=== PATIENT | male | born 1955 | race Hispanic/Latino ===

== ENCOUNTER 2019-02-17 11:38 | Inpatient (IN) | payer OTHER ==
[~2019-02-17] VITALS: Ht 175.3 cm; Wt 95.4 kg
[2019-02-17] MEDS: FUROSEMIDE INJ 10 MG/ML 2 ML VIAL IV ONE ×2 (01:00→18:30)
[~2019-02-17 11:38] MED LIST: ALLOPURINOL100 MG PO; ASPIR-LOW81 MG PO; Hydralazine Hcl PO; LISINOPRIL10 MG PO; METOPROLOL SUCC25 MG PO; PLAVIX75 MG PO; ZOCOR20 MG PO
--- OUTSIDE RECORDS SUMMARY | 2019-02-17 11:40 | XMS REPORT | Summary of Care ---
Author Author [facility] Organization [facility] Address Unknown Phone Unavailable Encounter [facility] Derrickr_sherin(FIN) [id number] Date(s): 01/12/17 - 01/12/17 [facility] [address] [place] [address] [phone] Discharge Disposition: Home or Self Care Attending Physician: Christopher Ruiz MD Vital Signs No data available for this section Problem List Condition Effective Dates Status Health Status Informant Chest Resolved pain(Confirmed)1 HB - Heart Resolved block(Confirmed) Heart Resolved attack(Confirmed) HTN - Resolved Hypertension(Confirm ed) SOB - Shortness of Active breath(Confirmed) 1comes and goes Allergies, Adverse Reactions, Alerts Substance Reaction Severity Status NKDA Active Medications No data available for this section Results No data available for this section Immunizations No data available for this section Procedures Procedure Date Related Diagnosis Body Site Operation on heart Social History Social History Type Response Substance Abuse Use: None. IV drug use: No. Exercise Exercise frequency: 3-4 times/week. Self assessment: Good condition. Alcohol Past Smoking Status Never smoker; Exposure to Tobacco Smoke None; Cigarette Smoking Last 365 Days No; Reg Smoking Cessation Counseling No Assessment and Plan No data available for this section
--- OUTSIDE RECORDS SUMMARY | 2019-02-17 11:40 | XMS REPORT | Summary of Care ---
Author Organization Unknown Address Unknown Phone Unavailable Encounter [facility] Derrickr_sherin(ARSEN) [id number] Date(s): 12/29/13 - 12/31/13 [facility] [address] Discharge Disposition: Home Physician Attending: Yassine Alvarado MD Physician Admitting: Yassine Alvarado MD Physician_Referring: José Farfan MD Reason for Visit ICD 574.20 / CPT 63950 Vital Signs 1 2 3 Most recent to oldest [Reference Range]: 175.26 cm (12/24/13 12:07 PM) Height 99.3 DegF *HI* (12/31/13 12:15 PM) 99.3 DegF *HI* (12/31/13 8:00 AM) 99.0 DegF (12/31/13 4:00 AM) Temperature Oral [96.4-99.1 DegF] 156 mmHg *HI* (12/31/13 12:15 PM) 182 mmHg *HI* (12/31/13 8:00 AM) 145 mmHg *HI* (12/31/13 4:00 AM) Systolic Blood Pressure [90-140 mmHg] 83 mmHg (12/31/13 12:15 PM) 95 mmHg *HI* (12/31/13 8:00 AM) 78 mmHg (12/31/13 4:00 AM) Diastolic Blood Pressure [60-90 mmHg] 16 BRMIN (12/31/13 4:00 AM) 16 BRMIN (12/31/13 12:00 AM) 16 BRMIN (12/30/13 8:00 PM) Respiratory Rate [14-20 BRMIN] 76 bpm (12/31/13 12:15 PM) 84 bpm (12/31/13 8:00 AM) 72 bpm (12/31/13 4:00 AM) Peripheral Pulse Rate [60-100 bpm] 95 kg (12/24/13 12:07 PM) Weight 30.93 m2 (12/24/13 12:07 PM) Body Mass Index Problem List Condition Effective Dates Status Health Status Informant Chest Resolved pain(Confirmed)1 HB - Heart Resolved block(Confirmed) Heart Resolved attack(Confirmed) HTN - Resolved Hypertension(Confirm ed) SOB - Shortness of Active breath(Confirmed) 1comes and goes Allergies, Adverse Reactions, Alerts Substance Reaction Severity Status NKDA Active Medications allopurinol 100 mg, 1 tab, Route: PO, Drug form: TAB, BID, Dosing Weight 95, kg, Start date: 12/31/13 17:00:00, Duration: 30 day, Stop date: 01/30/14 9:00:00 Notes: (Same as: Zyloprim) Start Date: 12/31/13 Stop Date: 12/31/13 Status: Canceled allopurinol 100 mg oral tablet 100 mg=1 tab, PO, BID, # 60 tab, 0 Refill(s) Start Date: 12/24/13 Status: Ordered Ancef 2 gm, 100 mL, Route: IVPB, Drug form: INJ, ONCE, Dosing Weight 95, kg, Start yassine e: 12/29/13 9:59:00, Duration: 1 doses or times, Stop date: 12/29/13 9:59:00 Notes: Same as: Ancef Start Date: 12/29/13 Stop Date: 12/29/13 Status: Completed aspirin 81 mg tablet, enteric coated 81 mg, 1 tab, Route: PO, Drug form: ECTAB, Daily, Dosing Weight 95, kg, Start da te: 12/31/13 12:00:00, Duration: 30 day, Stop date: 01/30/14 9:00:00 Notes: Do not crush or chew.(Same As: Ecotrin) Start Date: 12/31/13 Stop Date: 12/31/13 Status: Discontinued aspirin 81 mg tablet, enteric coated 81 mg=1 tab, PO, Daily, # 0 tab, 0 Refill(s) Start Date: 12/24/13 Status: Ordered cloNIDine 0.1 mg oral tablet 0.1 mg, 1 tab, Route: PO, Drug form: TAB, Q4H, Dosing Weight 95, kg, PRN Hyperte nsion, Start date: 12/31/13 11:17:00, Duration: 30 day, Stop date: 01/30/14 11:1 6:00 Notes: (Same As: Catapres) Start Date: 12/31/13 Stop Date: 12/31/13 Status: Discontinued enalapril 0.625 mg, 0.5 mL, Route: IVP, Drug form: INJ, Q6H, Dosing Weight 95, kg, PRN Hyp ertension, Start date: 12/29/13 16:23:00, Duration: 30 day, Stop date: 01/28/14 16:22:00 Notes: (Same as: Vasotec-IV) Start Date: 12/29/13 Stop Date: 12/31/13 Status: Discontinued fentaNYL 25 microgram, 0.5 mL, Route: IVP, Drug form: INJ, Q5Min, Dosing Weight 95, kg, P RN Pain Score 4-6, Start date: 12/29/13 14:06:00, Duration: 4 doses or times, St op date: Limited # of times Notes: (Same as: Sublimaze) Preservative free. Start Date: 12/29/13 Stop Date: 12/29/13 Status: Discontinued flumazenil 0.2 mg, 2 mL, Route: IVP, Drug form: INJ, PRN, Dosing Weight 95, kg, PRN Benzodi azepine Reversal, Initial dose, Start date: 12/29/13 14:06:00, Duration: 30 day, Stop date: 01/28/14 14:05:00 Notes: (Same as: Romazicon) Start Date: 12/29/13 Stop Date: 12/29/13 Status: Discontinued hydromorphone 0.5 mg, 0.5 mL, Route: IVP, Drug form: INJ, Q5Min, Dosing Weight 95, kg, PRN Sharri n Score 7-10, Start date: 12/29/13 14:06:00, Duration: 4 doses or times, Stop da te: Limited # of times Start Date: 12/29/13 Stop Date: 12/29/13 Status: Discontinued Lactated Ringers Injection IV 1000 mL 1,000 mL, Rate: 25 ml/hr, Infuse over: 40 hr, Route: IV, Dosing Weight 95 kg, To opal Volume: 1,000, Start date: 12/29/13 9:57:00, Duration: 30 day, Stop date: 9:56:00 Start Date: 12/29/13 Stop Date: 12/29/13 Status: Discontinued lisinopril 10 mg, 1 tab, Route: PO, Drug form: TAB, Daily, Dosing Weight 95, kg, Start date : 01/01/14 9:00:00, Duration: 30 day, Stop date: 01/30/14 9:00:00 Notes: (Same as: Prinivil, Zestril) Start Date: 01/01/14 Stop Date: 12/31/13 Status: Canceled lisinopril 10 mg oral tablet 10 mg=1 tab, PO, Daily, # 30 tab, 0 Refill(s) Start Date: 12/24/13 Status: Ordered magnesium sulfate 2 gm, 50 mL, Route: IV, Drug form: INJ, ONCE, Dosing Weight 95, kg, Start date: 12/30/13 9:14:00, Stop date: 12/30/13 9:14:00 Start Date: 12/30/13 Stop Date: 12/30/13 Status: Completed meperidine 12.5 mg, 0.25 mL, Route: IVP, Drug form: INJ, Q30Min, Dosing Weight 95, kg, PRN Other -See Comment, For shivering, Start date: 12/29/13 14:06:00, Duration: 2 do ses or times, Stop date: Limited # of times Notes: (Same As: Demerol) Start Date: 12/29/13 Stop Date: 12/29/13 Status: Discontinued metoprolol 25 mg oral tablet, extended release 25 mg, PO, Daily, # 30 tab, 0 Refill(s) Start Date: 12/24/13 Stop Date: 01/23/14 Status: Ordered metoprolol 5 mg/5 ml INJ 2.5 mg, 2.5 mL, Route: IVP, Drug form: INJ, BID, Dosing Weight 95, kg, Start yassine e: 12/29/13 17:00:00, Duration: 30 day, Stop date: 01/28/14 9:00:00 Notes: (Same as: Lopressor)Push over 2 minutes Start Date: 12/29/13 Stop Date: 12/30/13 Status: Discontinued metoprolol 5 mg/5 ml INJ 5 mg, 5 mL, Route: IVP, Drug form: INJ, Q8H, Dosing Weight 95, kg, Start date: 0 12/30/13 16:00:00, Duration: 30 day, Stop date: 01/29/14 8:00:00 Notes: (Same as: Lopressor)Push over 2 minutes Start Date: 12/30/13 Stop Date: 12/31/13 Status: Discontinued morphine Sulfate 2 mg, 1 mL, Route: IV, Drug form: INJ, Q3H, Dosing Weight 95, kg, PRN Pain Score 6-10, Start date: 12/30/13 8:12:00, Duration: 30 day, Stop date: 01/29/14 8:11: 00 Notes: (Same as:MORPhine Sulfate) Start Date: 12/30/13 Stop Date: 12/31/13 Status: Discontinued naloxone 0.04 mg, 0.1 mL, Route: IVP, Drug form: INJ, Q2MIN, Dosing Weight 95, kg, PRN Na rcotic Reversal, Start date: 12/29/13 14:06:00, Duration: 8 doses or times, Stop date: Limited # of times Notes: Same as Narcan Start Date: 12/29/13 Stop Date: 12/29/13 Status: Discontinued Neutra-Phos 1 pkt, Route: PO, Drug Form: PDR/REC, Dosing Weight 95, kg, ONCE, Start date: 11:00:00, Stop date: 12/31/13 11:00:00 Notes: (Same as: Neutra-Phos) Each 1.25 gm pkt has 250mg phosphorous. Mix w/2.5 oz water and stir. Start Date: 12/31/13 Stop Date: 12/31/13 Status: Completed nitroglycerin 2% ointment 0.5 inch, Route: TOP, Drug Form: OINT, Dosing Weight 95, kg, Q8H, Start date: 0:00:00, Duration: 30 day, Stop date: 01/28/14 16:00:00 Notes: 1 gram is approximately 1 inch of nitroglycerin ointment (20 mg NTG pe r gram) (Same as:Nitro-Bid) Start Date: 12/30/13 Stop Date: 12/31/13 Status: Discontinued [place] 10/325 oral tablet 1 tab, Route: PO, Drug Form: TAB, Dosing Weight 95, kg, Q4H, PRN Pain Score 4-6, Start date: 12/29/13 14:06:00, Duration: 30 day, Stop date: 01/28/14 14:05:00 Notes: Do not exceed 4gm/day of acetaminophen. (Same as: [place] 325/10) Start Date: 12/29/13 Stop Date: 12/29/13 Status: Discontinued [place] 5/325 oral tablet 1 tab, PO, Q4H, for pain, # 30 tab, 0 Refill(s) Start Date: 12/31/13 Status: Ordered Ofirmev 1,000 mg, 100 mL, Route: IV, Drug form: INJ, ONCE, Dosing Weight 95, kg, PRN Sharri n Score 1-3, for > or=50 kg, Start date: 12/29/13 14:06:00 Notes: Infuse over 15 minutes Do not exceed 4gm/day of acetaminophen Start Date: 12/29/13 Stop Date: 12/29/13 Status: Discontinued ondansetron 4 mg, Route: IVP, ONCE, Dosing Weight 95, kg, PRN Nausea & Vomiting, Start date: 12/29/13 14:06:00 Start Date: 12/29/13 Stop Date: 12/29/13 Status: Completed oxyCODONE 5 mg, 1 tab, Route: PO, Drug form: TAB, Q4H, Dosing Weight 95, kg, PRN Pain Scor e 4-6, Start date: 12/29/13 14:06:00, Duration: 30 day, Stop date: 01/28/14 14:0 5:00 Notes: (Same as: OxyIR) Start Date: 12/29/13 Stop Date: 12/29/13 Status: Discontinued Protonix 40 mg, Route: IVP, Drug form: INJ, Daily, Dosing Weight 95, kg, Patient is NPO, Start date: 12/30/13 9:00:00, Duration: 30 day, Stop date: 01/28/14 9:00:00 Notes: For IV push reconstitute with 10 ml 0.9% sodium chloride and push over 2 minutes. (Same as: Protonix) Start Date: 12/30/13 Stop Date: 12/31/13 Status: Discontinued Protonix 40 mg, 1 tab, Route: PO, Drug form: ECTAB, Daily, Start date: 01/01/14 9:00:00, Duration: 30 day, Stop date: 01/30/14 9:00:00 Notes: Tablet should not be chewed or crushed.(Same as: Protonix) Start Date: 01/01/14 Stop Date: 12/31/13 Status: Canceled Sodium Chloride 0.9% IV 1,000 mL 1,000 mL, Rate: 75 ml/hr, Infuse over: 13.3 hr, Route: IV, Dosing Weight 95 kg, Total Volume: 1,000, Start date: 12/29/13 14:18:00, Duration: 30 day, Stop date: 01/28/14 14:17:00 Start Date: 12/29/13 Stop Date: 12/31/13 Status: Discontinued Toprol-XL 25 mg oral tablet, extended release 25 mg, 1 tab, Route: PO, Drug form: ERTAB, Daily, Start date: 01/01/14 9:00:00, Duration: 30 day, Stop date: 01/30/14 9:00:00 Notes: (Same as: Toprol XL) Do Not Crush Start Date: 01/01/14 Stop Date: 12/31/13 Status: Canceled Results ELECTROLYTES 1 2 3 Most recent to oldest [Reference Range]: 139 mEq/L (12/31/13 4:56 AM) 137 mEq/L (12/30/13 6:12 AM) 139 mEq/L (12/24/13 12:15 PM) Sodium Lvl [135-145 mEq/L] 4.0 mEq/L (12/31/13 4:56 AM) 3.7 mEq/L (12/30/13 6:12 AM) 3.8 mEq/L (12/24/13 12:15 PM) Potassium Lvl [3.5-5.1 mEq/L] 102 mEq/L (12/31/13 4:56 AM) 102 mEq/L (12/30/13 6:12 AM) 101 mEq/L (12/24/13 12:15 PM) Chloride Lvl [95-109 mEq/L] 28 mEq/L (12/31/13 4:56 AM) 27 mEq/L (12/30/13 6:12 AM) 33 mEq/L *HI* (12/24/13 12:15 PM) CO2 [24-32 mEq/L] 13.0 mEq/L (12/31/13 4:56 AM) 11.7 mEq/L (12/30/13 6:12 AM) 8.8 mEq/L *LOW* (12/24/13 12:15 PM) AGAP [10.0-20.0 mEq/L] CHEM PANEL 1 2 3 Most recent to oldest [Reference Range]: 1.0 mg/dL (12/31/13 4:56 AM) 1.0 mg/dL (12/30/13 6:12 AM) 1.0 mg/dL (12/24/13 12:15 PM) Creatinine Lvl [0.5-1.4 mg/dL] 83 mL/min/1.73m2 1 *NA* (12/31/13 4:56 AM) 83 mL/min/1.73m2 2 *NA* (12/30/13 6:12 AM) 83 mL/min/1.73m2 3 *NA* (12/24/13 12:15 PM) eGFR 15 mg/dL (12/31/13 4:56 AM) 15 mg/dL (12/30/13 6:12 AM) 18 mg/dL (12/24/13 12:15 PM) BUN [7-22 mg/dL] 15 (12/31/13 4:56 AM) 15 (12/30/13 6:12 AM) 18 (12/24/13 12:15 PM) B/C Ratio [6-25] 101 mg/dL 4 *HI* (12/31/13 4:56 AM) 123 mg/dL 5 *HI* (12/30/13 6:12 AM) 118 mg/dL 6 *HI* (12/24/13 12:15 PM) Glucose Lvl [70-99 mg/dL] 6.9 g/dL (12/31/13 4:56 AM) 7.6 g/dL (12/30/13 6:12 AM) 8.2 g/dL (12/24/13 12:15 PM) Total Protein [6.4-8.4 g/dL] 3.4 g/dL *LOW* (12/31/13 4:56 AM) 3.6 g/dL (12/30/13 6:12 AM) 4.2 g/dL (12/24/13 12:15 PM) Albumin Lvl [3.5-5.0 g/dL] 3.5 g/dL (12/31/13 4:56 AM) 4.0 g/dL (12/30/13 6:12 AM) 4.0 g/dL (12/24/13 12:15 PM) Globulin [2.0-4.0 g/dL] 1.0 (12/31/13 4:56 AM) 0.9 (12/30/13 6:12 AM) 1.0 (12/24/13 12:15 PM) A/G Ratio [0.7-1.6] 8.7 mg/dL (12/31/13 4:56 AM) 8.5 mg/dL (12/30/13 6:12 AM) 9.0 mg/dL (12/24/13 12:15 PM) Calcium Lvl [8.5-10.5 mg/dL] 2.4 mg/dL *LOW* (12/31/13 4:56 AM) 2.6 mg/dL (12/30/13 6:12 AM) Phosphorus [2.5-4.5 mg/dL] 2.0 mg/dL (12/31/13 4:56 AM) 1.7 mg/dL *LOW* (12/30/13 6:12 AM) Magnesium Lvl [1.8-2.4 mg/dL] 38 unit/L (12/31/13 4:56 AM) 43 unit/L (12/30/13 6:12 AM) 29 unit/L (12/24/13 12:15 PM) ALT [0-65 unit/L] 49 unit/L *HI* (12/31/13 4:56 AM) 56 unit/L *HI* (12/30/13 6:12 AM) 21 unit/L (12/24/13 12:15 PM) AST [0-37 unit/L] 57 unit/L (12/31/13 4:56 AM) 63 unit/L (12/30/13 6:12 AM) 80 unit/L (12/24/13 12:15 PM) Alk Phos [39-136 unit/L] 1.4 mg/dL *HI* (12/31/13 4:56 AM) 0.8 mg/dL (12/30/13 6:12 AM) 0.5 mg/dL (12/24/13 12:15 PM) Bili Total [0.2-1.3 mg/dL] 75 unit/L (12/24/13 12:15 PM) Amylase Lvl [25-115 unit/L] 1Result Comment: The eGFR is calculated using the CKD-EPI formula. In most young, healthy individuals the eGFR will be >90 mL/min/1.73m2. The eGFR declines with age. An eGFR of 60-89 may be normal in some populations, particularly the elderly, for whom the CKD-EPI formula has not been extensively validated. Use of the eGFR is not recommended in the following populations: Individuals with unstable creatinine concentrations, including patients and those with serious co-morbid conditions. Patients with extremes in muscle mass or diet. The data above are obtained from the National Kidney Disease Education Program ( NKDEP) which additionally recommends that when the eGFR is used in patients with extremes of body mass index for purposes of drug dosing, the eGFR should be mul tiplied by the estimated BMI. 2Result Comment: The eGFR is calculated using the CKD-EPI formula. In most young, healthy individuals the eGFR will be >90 mL/min/1.73m2. The eGFR declines with age. An eGFR of 60-89 may be normal in some populations, particularly the elderly, for whom the CKD-EPI formula has not been extensively validated. Use of the eGFR is not recommended in the following populations: Individuals with unstable creatinine concentrations, including patients and those with serious co-morbid conditions. Patients with extremes in muscle mass or diet. The data above are obtained from the National Kidney Disease Education Program ( NKDEP) which additionally recommends that when the eGFR is used in patients with extremes of body mass index for purposes of drug dosing, the eGFR should be mul tiplied by the estimated BMI. 3Result Comment: The eGFR is calculated using the CKD-EPI formula. In most young, healthy individuals the eGFR will be >90 mL/min/1.73m2. The eGFR declines with age. An eGFR of 60-89 may be normal in some populations, particularly the elderly, for whom the CKD-EPI formula has not been extensively validated. Use of the eGFR is not recommended in the following populations: Individuals with unstable creatinine concentrations, including patients and those with serious co-morbid conditions. Patients with extremes in muscle mass or diet. The data above are obtained from the National Kidney Disease Education Program ( NKDEP) which additionally recommends that when the eGFR is used in patients with extremes of body mass index for purposes of drug dosing, the eGFR should be mul tiplied by the estimated BMI. 4Interpretive Data: Adult reference range values reflect the clinical guidelines of the [employer] [place] [employer]. 5Interpretive Data: Adult reference range values reflect the clinical guidelines of the [employer] [place] [employer]. 6Interpretive Data: Adult reference range values reflect the clinical guidelines of the [employer] [place] [employer]. LIPIDS 1 2 3 Most recent to oldest [Reference Range]: 4.00 (12/30/13 6:12 AM) CHD Risk [4.00-7.30] 144 mg/dL (12/30/13 6:12 AM) Chol [<=199 mg/dL] 103 mg/dL (12/30/13 6:12 AM) Trig [<=149 mg/dL] 36 mg/dL *LOW* (12/30/13 6:12 AM) HDL [>=61 mg/dL] 87 mg/dL (12/30/13 6:12 AM) LDL (Calculated) [<=99 mg/dL] 21 *NA* (12/30/13 6:12 AM) VLDL SPECIAL CHEMISTRY 1 2 3 Most recent to oldest [Reference Range]: 5.5 % (12/30/13 6:12 AM) Hgb A1C [<=5.6 %] THYROID PANEL 1 2 3 Most recent to oldest [Reference Range]: 0.719 uIU/mL (12/30/13 6:12 AM) TSH [0.360-3.740 uIU/mL] URINE AND STOOL 1 2 3 Most recent to oldest [Reference Range]: Clear (12/24/13 12:30 PM) UA Turbidity [Clear] Ltyellow *NA* (12/24/13 12:30 PM) UA Color 8.0 (12/24/13 12:30 PM) UA pH [5.0-8.0] 1.015 (12/24/13 12:30 PM) UA Spec Grav [<=1.030] Negative mg/dL *NA* (12/24/13 12:30 PM) UA Glucose [Negative mg/dL] Negative (12/24/13 12:30 PM) UA Blood [Negative] Negative mg/dL *NA* (12/24/13 12:30 PM) UA Ketones [Negative mg/dL] Negative mg/dL (12/24/13 12:30 PM) UA Protein [Negative mg/dL] 2.0 mg/dL *HI* (12/24/13 12:30 PM) UA Urobilinogen [0.1-1.0 mg/dL] Negative *NA* (12/24/13 12:30 PM) UA Bili [Negative] Negative (12/24/13 12:30 PM) UA Leuk Est [Negative] Negative (12/24/13 12:30 PM) UA Nitrite [Negative] <1 /HPF (12/24/13 12:30 PM) UA WBC [0-5 /HPF] 1 /HPF (12/24/13 12:30 PM) UA RBC [0-2 /HPF] None Seen *NA* (12/24/13 12:30 PM) UA Sq Epi IMMUNOLOGY 1 2 3 Most recent to oldest [Reference Range]: Negative *NA* (12/30/13 6:12 AM) Hep Bs Ag [Negative] Negative *NA* (12/30/13 6:12 AM) Hep C Ab [Negative] HEMATOLOGY 1 2 3 Most recent to oldest [Reference Range]: 9.3 K/CMM (12/31/13 4:56 AM) 10.4 K/CMM (12/30/13 6:12 AM) 7.5 K/CMM (12/24/13 12:15 PM) WBC [3.7-10.4 K/CMM] 4.31 M/CMM *LOW* (12/31/13 4:56 AM) 4.74 M/CMM (12/30/13 6:12 AM) 5.07 M/CMM (12/24/13 12:15 PM) RBC [4.70-6.10 M/CMM] 12.5 g/dL *LOW* (12/31/13 4:56 AM) 13.8 g/dL *LOW* (12/30/13 6:12 AM) 14.8 g/dL (12/24/13 12:15 PM) Hgb [14.0-18.0 g/dL] 36.1 % *LOW* (12/31/13 4:56 AM) 39.7 % *LOW* (12/30/13 6:12 AM) 42.2 % (12/24/13 12:15 PM) Hct [42.0-54.0 %] 83.6 fL (12/31/13 4:56 AM) 83.8 fL (12/30/13 6:12 AM) 83.2 fL (12/24/13 12:15 PM) MCV [80.0-94.0 fL] 29.1 pg (12/31/13 4:56 AM) 29.1 pg (12/30/13 6:12 AM) 29.2 pg (12/24/13 12:15 PM) MCH [27.0-31.0 pg] 34.8 g/dL (12/31/13 4:56 AM) 34.7 g/dL (12/30/13 6:12 AM) 35.1 g/dL (12/24/13 12:15 PM) MCHC [32.0-36.0 g/dL] 13.8 % (12/31/13 4:56 AM) 13.6 % (12/30/13 6:12 AM) 13.8 % (12/24/13 12:15 PM) RDW [11.5-14.5 %] 160 K/CMM (12/31/13 4:56 AM) 174 K/CMM (12/30/13 6:12 AM) 181 K/CMM (12/24/13 12:15 PM) Platelet [133-450 K/CMM] 8.7 fL (12/31/13 4:56 AM) 9.2 fL (12/30/13 6:12 AM) 9.1 fL (12/24/13 12:15 PM) MPV [7.4-10.4 fL] 56.8 % (12/24/13 12:15 PM) Segs [45.0-75.0 %] 29.9 % (12/24/13 12:15 PM) Lymphocytes [20.0-40.0 %] 10.5 % (12/24/13 12:15 PM) Monocytes [2.0-12.0 %] 1.5 % (12/24/13 12:15 PM) Eosinophils [0.0-4.0 %] 1.3 % *HI* (12/24/13 12:15 PM) Basophils [0.0-1.0 %] 4.3 K/CMM (12/24/13 12:15 PM) Segs-Bands # [1.5-8.1 K/CMM] 2.2 K/CMM (12/24/13 12:15 PM) Lymphocytes # [1.0-5.5 K/CMM] 0.8 K/CMM (12/24/13 12:15 PM) Monocytes # [0.0-0.8 K/CMM] 0.1 K/CMM (12/24/13 12:15 PM) Eosinophils # [0.0-0.5 K/CMM] 0.1 K/CMM (12/24/13 12:15 PM) Basophils # [0.0-0.2 K/CMM] Medications Administered During Your Visit No data available for this section Immunizations No data available for this section Procedures Procedure Type Body Site Date of Procedure Related Diagnosis Operation on heart Social History Social History Type Response Substance Abuse Use: None, IV drug use: No Exercise Times per week: 3-4 times/week, Self assessment: Good condition Alcohol Use: Past Smoking Status Never smoker, Exposure to Tobacco Smoke None, Cigarette Smoking Last 365 Days No, Reg Smoking Cessation Counseling No Assessment and Plan Extracted from: Title: Clinical Document Author: Yassine Alvarado MD Date: 12/31/13 IM PROGRESS NOTE (Dr. Yassine Alvarado M.D.) SUBJECTIVE Tolerate P.O. liquid so far No SOB or CP Ambulating Vitals and Temp: VitalsTmp(F)[id number] 12/31 08:[id number]/95-------- 12/31 04:98.448710/7816------ 12/31 00:[id number]/7316------ 12/30 21:22 98--- 12/30 20:[id number]/7816------ 24 Hr Tmax: 99.8F (37.67c) at 12/30 11:28Vital Signs are the last 5 in the past 48 hours. OBJECTIVE: HEENT: NC/AT, PERRL, EOMI, OP: clear NECK: Supple, no JVD CVS: RRR, S1, S2, no murmur LUNGS: Good upper airway entry, CTA ABD: S/ND, mild TTP, +BS EXT: no C/C/E NEURO: awake, talking, moving bilateral extremities Scheduled Meds (3): 12/30/13 metoprolol (metoprolol 5 mg/5 ml INJ) 5 mg IVP Q8H 12/30/13 nitroglycerin (nitroglycerin 2% ointment) 0.5 inch TOP Q8H 01/01/14 pantoprazole (Protonix) 40 mg PO Daily PRN Meds (2): 12/29/13 enalapril 0.625 mg IVP Q6H 12/30/13 morphine Sulfate 2 mg IV Q3H Labs (Last four charted values) WBC 9.3(DEC 31)10.4(DEC 30)7.5(DEC 24) Hgb L 12.5(DEC 31)L 13.8(DEC 30)14.8(DEC 24) Hct L 36.1(DEC 31)L 39.7(DEC 30)42.2(DEC 24) Plt 160(DEC 31)174(DEC 30)181(DEC 24) Na 139(DEC 31)137(DEC 30)139(DEC 24) K 4.0(DEC 31)3.7(DEC 30)3.8(DEC 24) CO2 28(DEC 31)27(DEC 30)H 33(DEC 24) Cl 102(DEC 31)102(DEC 30)101(DEC 24) Cr 1.0(DEC 31)1.0(DEC 30)1.0(DEC 24) BUN 15(DEC 31)15(DEC 30)18(DEC 24) Glucose Random H 101(DEC 31)H 123(DEC 30)H 118(DEC 24) Mg 2.0(DEC 31)L 1.7(DEC 30) Phos L 2.4(DEC 31)2.6(DEC 30) Ca 8.7(DEC 31)8.5(DEC 30)9.0(DEC 24) IMPRESSION & PLAN DIAGNOSIS: 1. Symptomatic cholelithiasis / chronic cholecystitis with an open cholecystectomy. 2. Hypertension. 3. Hyperlipidemia. 4. Coronary artery disease with history of prior myocardial infarction. 5. Hyperglycemia. 6. Elevated CO2 level- resolved 7. Low phos PLAN: Give Phos Advance diet Pain control Possible d/c this PM if tolerating P.O.
--- OUTSIDE RECORDS SUMMARY | 2019-02-17 11:40 | XMS REPORT | Continuity of Care Document ---
Author Author [employer] Address Unknown Phone Unavailable Care Team Providers Care Engine Pilot Name Role Phone [facility] Unavailable Unavailable Problems Problem Status Onset Date Classification Date Reported Comments Source Pain in left foot 05/27/2018 10/08/2018 YUMIKO [place] M79.672 - PAIN IN LEFT FOOT Active 03/21/2018 ZORAND [place] I10 - ESSENTIAL (PRIMARY) HYPERTENSI Active 01/13/2016 YUMIKO [place] ICD 574.20 / CPT 94397 Active 12/23/2013 [facility] UNK Active 12/23/2013 [facility] Chest pain (finding) Resolved Problem 10/08/2018 [facility] Heart block (disorder) Resolved Problem 10/08/2018 YUMIKO [place],[facility] Myocardial infarction (disorder) Resolved Problem 10/08/2018 YUMIKO [place],[facility] Hypertensive disorder, systemic arterial (disorder) Resolved Problem 10/08/2018 YUMIKO Cook,[facility] Dyspnea (finding) Active Problem 10/08/2018 [facility] CHOLELITHIASIS NOS Active [facility] Medications Medication Details Route Status Patient Instructions Ordering Provider Order Date Source 24 HR Metoprolol Tartrate 25 MG Extended Release Tablet [Toprol] 25 mg, 1 tab, Route: PO, Drug form: ERTAB, Daily, Start date: 01/01/14 9:00:00, Duration: 30 day, Stop date: 01/30/14 9:00:00Notes: (Same as: Toprol XL) Do Not Crush No Longer Active 01/01/2014 [facility] Lisinopril 10 mg, 1 tab, Route: PO, Drug form: TAB, Daily, Dosing Weight 95, kg, Start date: 01/01/14 9:00:00, Duration: 30 day, Stop date: 01/30/14 9:00:00Notes: (Same as: Prinivil, Zestril) No Longer Active 01/01/2014 [facility] Protonix 40 mg, 1 tab, Route: PO, Drug form: ECTAB, Daily, Start date: 01/01/14 9:00:00, Duration: 30 day, Stop date: 01/30/14 9:00:00Notes: Tablet should not be chewed or crushed. (Same as: Protonix) No Longer Active 01/01/2014 [facility] Allopurinol 100 mg, 1 tab, Route: PO, Drug form: TAB, BID, Dosing Weight 95, kg, Start date: 12/31/13 17:00:00, Duration: 30 day, Stop date: 01/30/14 9:00:00Notes: (Same as: Zyloprim) Inactive 12/31/2013 [facility] Aspirin 81 MG Enteric Coated Tablet 81 mg, 1 tab, Route: PO, Drug form: ECTAB, Daily, Dosing Weight 95, kg, Start date: 12/31/13 12:00:00, Duration: 30 day, Stop date: 01/30/14 9:00:00Notes: Do not crush or chew. (Same As: Ecotrin) Inactive 12/31/2013 [facility] Clonidine Hydrochloride 0.1 MG Oral Tablet 0.1 mg, 1 tab, Route: PO, Drug form: TAB, Q4H, Dosing Weight 95, kg, PRN Hypertension, Start date: 12/31/13 11:17:00, Duration: 30 day, Stop date: 01/30/14 11:16:00Notes: (Same As: Catapres) Inactive 12/31/2013 [facility] Acetaminophen 325 MG / Hydrocodone Bitartrate 5 MG Oral Tablet [[place] 5/325] 1 tab, PO, Q4H, for pain, # 30 tab, 0 Refill(s) Active 12/31/2013 [facility] Neutra-Phos 1 pkt, Route: PO, Drug Form: PDR/REC, Dosing Weight 95, kg, ONCE, Start date: 12/31/13 11:00:00, Stop date: 12/31/13 11:00:00Notes: (Same as: Neutra-Phos) Each 1.25 gm pkt has 250mg phosphorous. Mix w/2.5oz water and stir. Inactive 12/31/2013 [facility] Metoprolol 5 mg, 5 mL, Route: IVP, Drug form: INJ, Q8H, Dosing Weight 95, kg, Start date: 12/30/13 16:00:00, Duration: 30 day, Stop date: 01/29/14 8:00:00Notes: (Same as: Lopressor) Push over 2 minutes No Longer Active 12/30/2013 [facility] Magnesium Sulfate 2 gm, 50 mL, Route: IV, Drug form: INJ, ONCE, Dosing Weight 95, kg, Start date: 12/30/13 9:14:00, Stop date: 12/30/13 9:14:00 Inactive 12/30/2013 [facility] Protonix 40 mg, Route: IVP, Drug form: INJ, Daily, Dosing Weight 95, kg, Patient is NPO, Start date: 12/30/13 9:00:00, Duration: 30 day, Stop date: 01/28/14 9:00:00Notes: For IV push reconstitute with 10 ml 0.9% sodium chloride and push over 2 minutes. (Same as: Protonix) No Longer Active 12/30/2013 [facility] Morphine 2 mg, 1 mL, Route: IV, Drug form: INJ, Q3H, Dosing Weight 95, kg, PRN Pain Score 6-10, Start date: 12/30/13 8:12:00, Duration: 30 day, Stop date: 01/29/14 8:11:00Notes: (Same as:MORPhine Sulfate) No Longer Active 12/30/2013 [facility] Nitroglycerin 0.02 MG/MG Topical Ointment 0.5 inch, Route: TOP, Drug Form: OINT, Dosing Weight 95, kg, Q8H, Start date: 12/30/13 0:00:00, Duration: 30 day, Stop date: 01/28/14 16:00:00Notes: 1 gram is approximately 1 inch of nitroglycerin ointment (20 mg NTG per gram) (Same as:Nitro-Bid) No Longer Active 12/30/2013 [facility] Metoprolol 2.5 mg, 2.5 mL, Route: IVP, Drug form: INJ, BID, Dosing Weight 95, kg, Start date: 12/29/13 17:00:00, Duration: 30 day, Stop date: 01/28/14 9:00:00Notes: (Same as: Lopressor) Push over 2 minutes No Longer Active 12/29/2013 [facility] Enalapril 0.625 mg, 0.5 mL, Route: IVP, Drug form: INJ, Q6H, Dosing Weight 95, kg, PRN Hypertension, Start date: 12/29/13 16:23:00, Duration: 30 day, Stop date: 01/28/14 16:22:00Notes: (Same as: Vasotec-IV) No Longer Active 12/29/2013 [facility] Sodium Chloride 0.154 MEQ/ML Injectable Solution 1,000 mL, Rate: 75 ml/hr, Infuse over: 13.3 hr, Route: IV, Dosing Weight 95 kg, Total Volume: 1,000, Start date: 12/29/13 14:18:00, Duration: 30 day, Stop date: 01/28/14 14:17:00 No Longer Active 12/29/2013 [facility] Ofirmev 1,000 mg, 100 mL, Route: IV, Drug form: INJ, ONCE, Dosing Weight 95, kg, PRN Pain Score 1-3, for > or=50 kg, Start date: 12/29/13 14:06:00Notes: Infuse over 15 minutes Do not exceed 4gm/day of acetaminophen Inactive 12/29/2013 [facility] Acetaminophen 325 MG / Hydrocodone Bitartrate 10 MG Oral Tablet [[place] 10/325] 1 tab, Route: PO, Drug Form: TAB, Dosing Weight 95, kg, Q4H, PRN Pain Score 4-6, Start date: 12/29/13 14:06:00, Duration: 30 day, Stop date: 01/28/14 14:05:00Notes: Do not exceed 4gm/day of acetaminophen. (Same as: [place] 325/10) Inactive 12/29/2013 [facility] Ondansetron 4 mg, Route: IVP, ONCE, Dosing Weight 95, kg, PRN Nausea & Vomiting, Start date: 12/29/13 14:06:00 Inactive 12/29/2013 [facility] Naloxone 0.04 mg, 0.1 mL, Route: IVP, Drug form: INJ, Q2MIN, Dosing Weight 95, kg, PRN Narcotic Reversal, Start date: 12/29/13 14:06:00, Duration: 8 doses or times, Stop date: Limited # of timesNotes: Same as Narcan Inactive 12/29/2013 [facility] Meperidine 12.5 mg, 0.25 mL, Route: IVP, Drug form: INJ, Q30Min, Dosing Weight 95, kg, PRN Other -See Comment, For shivering, Start date: 12/29/13 14:06:00, Duration: 2 doses or times, Stop date: Limited # of t imesNotes: (Same As: Demerol) Inactive 12/29/2013 [facility] Flumazenil 0.2 mg, 2 mL, Route: IVP, Drug form: INJ, PRN, Dosing Weight 95, kg, PRN Benzodiazepine Reversal, Initial dose, Start date: 12/29/13 14:06:00, Duration: 30 day, Stop date: 01/28/14 14:05:00Notes: (Same as: Romazicon) Inactive 12/29/2013 [facility] Hydromorphone 0.5 mg, 0.5 mL, Route: IVP, Drug form: INJ, Q5Min, Dosing Weight 95, kg, PRN Pain Score 7-10, Start date: 12/29/13 14:06:00, Duration: 4 doses or times, Stop date: Limited # of times Inactive 12/29/2013 [facility] Fentanyl 25 microgram, 0.5 mL, Route: IVP, Drug form: INJ, Q5Min, Dosing Weight 95, kg, PRN Pain Score 4-6, Start date: 12/29/13 14:06:00, Duration: 4 doses or times, Stop date: Limited # of timesNotes: (Same as: Sublimaze) Preservative free. Inactive 12/29/2013 [facility] Oxycodone 5 mg, 1 tab, Route: PO, Drug form: TAB, Q4H, Dosing Weight 95, kg, PRN Pain Score 4-6, Start date: 12/29/13 14:06:00, Duration: 30 day, Stop date: 01/28/14 14:05:00Notes: (Same as: OxyIR) Inactive 12/29/2013 [facility] Ancef 2 gm, 100 mL, Route: IVPB, Drug form: INJ, ONCE, Dosing Weight 95, kg, Start date: 12/29/13 9:59:00, Duration: 1 doses or times, Stop date: 12/29/13 9:59:00Notes: Same as: Ancef Inactive 12/29/2013 [facility] Calcium Chloride 0.0014 MEQ/ML / Potassium Chloride 0.004 MEQ/ML / Sodium Chloride 0.103 MEQ/ML / Sodium Lactate 0.028 MEQ/ML Injectable Solution 1,000 mL, Rate: 25 ml/hr, Infuse over: 40 hr, Route: IV, Dosing Weight 95 kg, Total Volume: 1,000, Start date: 12/29/13 9:57:00, Duration: 30 day, Stop date: 01/28/14 9:56:00 Inactive 12/29/2013 [facility] allopurinol 100 mg oral tablet 100 mg=1 tab, PO, BID, # 60 tab, 0 Refill(s) Active 12/24/2013 [facility] lisinopril 10 mg oral tablet 10 mg=1 tab, PO, Daily, # 30 tab, 0 Refill(s) Active 12/24/2013 [facility] metoprolol 25 mg oral tablet, extended release 25 mg, PO, Daily, # 30 tab, 0 Refill(s) Active 12/24/2013 [facility] Aspirin 81 MG Enteric Coated Tablet 81 mg=1 tab, PO, Daily, # 0 tab, 0 Refill(s) Active 12/24/2013 [facility] Allergies, Adverse Reactions, Alerts No Known Medication Allergies Immunizations No Data Provided for This Section Results Order Name Results Value Reference Range Date Interpretation Comments Source CHEM PANEL eGFR 83 12/31/2013 <sup>1</sup>Result Comment: The eGFR is calculated using the CKD-EPI formula. In most young, healthy individuals the eGFR will be >90 mL/min/1.73m2. The eGFR declines with age. An eGFR of 60-89 may be normal in some populations, particularly the elderly, for whom the CKD-EPI formula has not been extensively validated. Use of the eGFR is not recommended in the following populations:& lt;br/>
Individuals with unstable creatinine concentrations, including patients and those with serious co-morbid conditions.

Patients with extremes in muscle mass or diet.

The data above are obtained from the National Kidney Disease Education Program (NKDEP) which additionally recommends that when the eGFR is used in patients with extremes of body mass index for purposes of drug dosing, the eGFR should be multiplied by the estimated BMI. [facility] CHEM PANEL Bili Total 1.4 0.2 - 1.3 12/31/2013 [facility] CHEM PANEL Alk Phos 57 39 - 136 12/31/2013 [facility] CHEM PANEL Albumin Lvl 3.4 3.5 - 5.0 12/31/2013 [facility] CHEM PANEL Globulin 3.5 2.0 - 4.0 12/31/2013 [facility] CHEM PANEL Total Protein 6.9 6.4 - 8.4 12/31/2013 [facility] CHEM PANEL AST 49 0 - 37 12/31/2013 [facility] CHEM PANEL A/G Ratio 1.0 0.7 - 1.6 12/31/2013 [facility] CHEM PANEL ALT 38 0 - 65 12/31/2013 [facility] CHEM PANEL BUN 15 7 - 22 12/31/2013 [facility] CHEM PANEL Creatinine Lvl 1.0 0.5 - 1.4 12/31/2013 [facility] CHEM PANEL Glucose Lvl 101 70 - 99 12/31/2013 <sup>4</sup>Interpretive Data: Adult reference range values reflect the clinical guidelines
of the [place] [employer]. [facility] CHEM PANEL B/C Ratio 15 6 - 25 12/31/2013 [facility] CHEM PANEL Calcium Lvl 8.7 8.5 - 10.5 12/31/2013 [facility] CHEM PANEL AGAP 13.0 10.0 - 20.0 12/31/2013 [facility] CHEM PANEL Sodium Lvl 139 135 - 145 12/31/2013 [facility] CHEM PANEL Chloride Lvl 102 95 - 109 12/31/2013 [facility] CHEM PANEL Potassium Lvl 4.0 3.5 - 5.1 12/31/2013 [facility] CHEM PANEL CO2 28 24 - 32 12/31/2013 [facility] CHEM PANEL Magnesium Lvl 2.0 1.8 - 2.4 12/31/2013 [facility] CHEM PANEL Phosphorus 2.4 2.5 - 4.5 12/31/2013 [facility] HEMATOLOGY Platelet 160 133 - 450 12/31/2013 [facility] HEMATOLOGY MPV 8.7 7.4 - 10.4 12/31/2013 [facility] HEMATOLOGY RDW 13.8 11.5 - 14.5 12/31/2013 [facility] HEMATOLOGY Hct 36.1 42.0 - 54.0 12/31/2013 [facility] HEMATOLOGY MCV 83.6 80.0 - 94.0 12/31/2013 [facility] MCH 29.1 27.0 - 31.0 12/31/2013 [facility] MCHC 34.8 32.0 - 36.0 12/31/2013 [facility] Hgb 12.5 14.0 - 18.0 12/31/2013 [facility] WBC 9.3 3.7 - 10.4 12/31/2013 [facility] RBC 4.31 4.70 - 6.10 12/31/2013 [facility] CHEM PANEL Magnesium Lvl 1.7 1.8 - 2.4 12/30/2013 [facility] CHEM PANEL eGFR 83 12/30/2013 <sup>2</sup>Result Comment: The eGFR is calculated using the CKD-EPI formula. In most young, healthy individuals the eGFR will be >90 mL/min/1.73m2. The eGFR declines with age. An eGFR of 60-89 may be normal in some populations, particularly the elderly, for whom the CKD-EPI formula has not been extensively validated. Use of the eGFR is not recommended in the following populations:& lt;br/>
Individuals with unstable creatinine concentrations, including patients and those with serious co-morbid conditions.

Patients with extremes in muscle mass or diet.

The data above are obtained from the National Kidney Disease Education Program (NKDEP) which additionally recommends that when the eGFR is used in patients with extremes of body mass index for purposes of drug dosing, the eGFR should be multiplied by the estimated BMI. [facility] CHEM PANEL AST 56 0 - 37 12/30/2013 [facility] CHEM PANEL Alk Phos 63 39 - 136 12/30/2013 [facility] CHEM PANEL Bili Total 0.8 0.2 - 1.3 12/30/2013 [facility] CHEM PANEL Calcium Lvl 8.5 8.5 - 10.5 12/30/2013 [facility] CHEM PANEL Total Protein 7.6 6.4 - 8.4 12/30/2013 [facility] CHEM PANEL Albumin Lvl 3.6 3.5 - 5.0 12/30/2013 [facility] CHEM PANEL AGAP 11.7 10.0 - 20.0 12/30/2013 [facility] CHEM PANEL B/C Ratio 15 6 - 25 12/30/2013 [facility] CHEM PANEL Globulin 4.0 2.0 - 4.0 12/30/2013 [facility] CHEM PANEL A/G Ratio 0.9 0.7 - 1.6 12/30/2013 [facility] CHEM PANEL Potassium Lvl 3.7 3.5 - 5.1 12/30/2013 [facility] CHEM PANEL Sodium Lvl 137 135 - 145 12/30/2013 [facility] CHEM PANEL BUN 15 7 - 22 12/30/2013 [facility] CHEM PANEL Creatinine Lvl 1.0 0.5 - 1.4 12/30/2013 [facility] CHEM PANEL Chloride Lvl 102 95 - 109 12/30/2013 [facility] CHEM PANEL CO2 27 24 - 32 12/30/2013 [facility] CHEM PANEL ALT 43 0 - 65 12/30/2013 [facility] CHEM PANEL Glucose Lvl 123 70 - 99 12/30/2013 <sup>5</sup>Interpretive Data: Adult reference range values reflect the clinical guidelines
of the [place] [employer]. [facility] CHEM PANEL Phosphorus 2.6 2.5 - 4.5 12/30/2013 [facility] HEMATOLOGY MPV 9.2 7.4 - 10.4 12/30/2013 [facility] HEMATOLOGY Platelet 174 133 - 450 12/30/2013 [facility] HEMATOLOGY RDW 13.6 11.5 - 14.5 12/30/2013 [facility] MCH 29.1 27.0 - 31.0 12/30/2013 [facility] HEMATOLOGY MCHC 34.7 32.0 - 36.0 12/30/2013 [facility] HEMATOLOGY Hct 39.7 42.0 - 54.0 12/30/2013 [facility] HEMATOLOGY MCV 83.8 80.0 - 94.0 12/30/2013 [facility] HEMATOLOGY RBC 4.74 4.70 - 6.10 12/30/2013 [facility] WBC 10.4 3.7 - 10.4 12/30/2013 [facility] HEMATOLOGY Hgb 13.8 14.0 - 18.0 12/30/2013 [facility] IMMUNOLOGY Hep C Ab Negative *NA* (12/30/13 6:12 AM) Negative 12/30/2013 [facility] Hep Bs Ag Negative *NA* (12/30/13 6:12 AM) Negative 12/30/2013 [facility] LIPIDS VLDL 21 12/30/2013 [facility] LIPIDS LDL (Calculated) 87 <=99 mg/dL 12/30/2013 [facility] LIPIDS Chol 144 <=199 mg/dL 12/30/2013 [facility] LIPIDS HDL 36 >=61 mg/dL 12/30/2013 [facility] LIPIDS CHD Risk 4.00 4.00 - 7.30 12/30/2013 [facility] LIPIDS Trig 103 <=149 mg/dL 12/30/2013 [facility] SPECIAL CHEMISTRY Hgb A1C 5.5 <=5.6 % 12/30/2013 [facility] THYROID PANEL TSH 0.719 0.360 - 3.740 12/30/2013 [facility] URINE AND STOOL UA Color Ltyellow 12/24/2013 [facility] URINE AND STOOL UA Sq Epi None Seen 12/24/2013 [facility] URINE AND STOOL UA WBC <1 0 - 5 12/24/2013 [facility] URINE AND STOOL UA Leuk Est Negative (12/24/13 12:30 PM) Negative 12/24/2013 [facility] URINE AND STOOL UA Nitrite Negative (12/24/13 12:30 PM) Negative 12/24/2013 [facility] URINE AND STOOL UA Urobilinogen 2.0 0.1 - 1.0 12/24/2013 [facility] URINE AND STOOL UA RBC 1 0 - 2 12/24/2013 [facility] URINE AND STOOL UA pH 8.0 5.0 - 8.0 12/24/2013 [facility] URINE AND STOOL UA Spec Grav 1.015 <=1.030 12/24/2013 [facility] URINE AND STOOL UA Blood Negative (12/24/13 12:30 PM) Negative 12/24/2013 [facility] URINE AND STOOL UA Bili Negative *NA* (12/24/13 12:30 PM) Negative 12/24/2013 [facility] URINE AND STOOL UA Ketones Negative mg/dL Negative mg/dL 12/24/2013 [facility] URINE AND STOOL UA Glucose Negative mg/dL Negative mg/dL 12/24/2013 [facility] URINE AND STOOL UA Protein Negative mg/dL Negative mg/dL 12/24/2013 [facility] URINE AND STOOL UA Turbidity Clear (12/24/13 12:30 PM) Clear 12/24/2013 [facility] CHEM PANEL Amylase Lvl 75 25 - 115 12/24/2013 [facility] CHEM PANEL Globulin 4.0 2.0 - 4.0 12/24/2013 [facility] CHEM PANEL A/G Ratio 1.0 0.7 - 1.6 12/24/2013 [facility] CHEM PANEL AGAP 8.8 10.0 - 20.0 12/24/2013 [facility] CHEM PANEL B/C Ratio 18 6 - 25 12/24/2013 [facility] CHEM PANEL eGFR 83 12/24/2013 <sup>3</sup>Result Comment: The eGFR is calculated using the CKD-EPI formula. In most young, healthy individuals the eGFR will be >90 mL/min/1.73m2. The eGFR declines with age. An eGFR of 60-89 may be normal in some populations, particularly the elderly, for whom the CKD-EPI formula has not been extensively validated. Use of the eGFR is not recommended in the following populations:& lt;br/>
Individuals with unstable creatinine concentrations, including patients and those with serious co-morbid conditions.

Patients with extremes in muscle mass or diet.

The data above are obtained from the National Kidney Disease Education Program (NKDEP) which additionally recommends that when the eGFR is used in patients with extremes of body mass index for purposes of drug dosing, the eGFR should be multiplied by the estimated BMI. [facility] CHEM PANEL CO2 33 24 - 32 12/24/2013 [facility] CHEM PANEL Chloride Lvl 101 95 - 109 12/24/2013 [facility] CHEM PANEL Potassium Lvl 3.8 3.5 - 5.1 12/24/2013 [facility] CHEM PANEL Albumin Lvl 4.2 3.5 - 5.0 12/24/2013 [facility] CHEM PANEL Total Protein 8.2 6.4 - 8.4 12/24/2013 [facility] CHEM PANEL Calcium Lvl 9.0 8.5 - 10.5 12/24/2013 [facility] CHEM PANEL Glucose Lvl 118 70 - 99 12/24/2013 <sup>6</sup>Interpretive Data: Adult reference range values reflect the clinical guidelines
of the [place] [employer]. [facility] CHEM PANEL BUN 18 7 - 22 12/24/2013 [facility] CHEM PANEL Creatinine Lvl 1.0 0.5 - 1.4 12/24/2013 [facility] CHEM PANEL Sodium Lvl 139 135 - 145 12/24/2013 [facility] CHEM PANEL AST 21 0 - 37 12/24/2013 [facility] CHEM PANEL Alk Phos 80 39 - 136 12/24/2013 [facility] CHEM PANEL ALT 29 0 - 65 12/24/2013 [facility] CHEM PANEL Bili Total 0.5 0.2 - 1.3 12/24/2013 [facility] HEMATOLOGY Basophils # 0.1 0.0 - 0.2 12/24/2013 [facility] HEMATOLOGY Monocytes 10.5 2.0 - 12.0 12/24/2013 [facility] HEMATOLOGY Lymphocytes 29.9 20.0 - 40.0 12/24/2013 [facility] HEMATOLOGY Segs 56.8 45.0 - 75.0 12/24/2013 [facility] HEMATOLOGY Eosinophils 1.5 0.0 - 4.0 12/24/2013 [facility] HEMATOLOGY Basophils 1.3 0.0 - 1.0 12/24/2013 [facility] HEMATOLOGY Eosinophils # 0.1 0.0 - 0.5 12/24/2013 [facility] HEMATOLOGY Monocytes # 0.8 0.0 - 0.8 12/24/2013 [facility] Lymphocytes # 2.2 1.0 - 5.5 12/24/2013 [facility] Segs-Bands # 4.3 1.5 - 8.1 12/24/2013 [facility] MPV 9.1 7.4 - 10.4 12/24/2013 [facility] MCHC 35.1 32.0 - 36.0 12/24/2013 [facility] Platelet 181 133 - 450 12/24/2013 [facility] RDW 13.8 11.5 - 14.5 12/24/2013 [facility] MCH 29.2 27.0 - 31.0 12/24/2013 [facility] MCV 83.2 80.0 - 94.0 12/24/2013 [facility] Hct 42.2 42.0 - 54.0 12/24/2013 [facility] Hgb 14.8 14.0 - 18.0 12/24/2013 [facility] RBC 5.07 4.70 - 6.10 12/24/2013 [facility] WBC 7.5 3.7 - 10.4 12/24/2013 [facility] Pathology Reports No Data Provided for This Section Diagnostic Reports Report Value Date Source Foot 3 views bilateral DX Exam: Right and left foot x-rays, 3 views each Reason for Exam: Pain Comparison Exam: Left foot x-ray 04/11/2013 Discussion: Right: No acute bony abnormalities. Joint spaces are preserved. No suspicious osteoblastic or osteolytic lesions. Left: No acute bony abnormalities. Joint spaces are preserved. No suspicious osteoblastic or osteolytic lesions. Impression: 1. Unremarkable x-rays of the right and left feet. 03/21/2018 YUMIKO Cook Shoulder series DX Exam: Right shoulder x-ray, 3 views Reason for Exam: - M25.511 Pain in right shoulder Comparison Exam: None Discussion: No acute bony abnormality seen of the right shoulder. Moderate osteoarthritis seen within the glenohumeral joint. The acromioclavicular joint and visualized portions of the scapula are unremarkable. No suspicious osteoblastic or osteolytic lesions. The visualized portions of the right rib cage and right lung are unremarkable. Impression: 1. Moderate osteoarthritis seen within the glenohumeral joint. 01/12/2017 YUMIKO Cook Chest 2 views DX EXAM: 2 view(s) of the chest. INDICATION: Hypertension. COMPARISON: Chest x-ray: None. FINDINGS: Support apparatus: None. Cardiac silhouette: Unremarkable. Donita: Unremarkable. Lobar consolidation: Negative. Pleural effusion: Negative. Pneumothorax: Negative. Other: Negative. Bones: Sternotomy. Other: Coronary artery bypass graft. IMPRESSION: 1. No acute cardiopulmonary process. 01/13/2016 YUMIKO Cook Abdomen AP view KUB 1 View: FINDINGS: KUB performed per protocol for laparoscopic to open procedure. The initial image partially cuts off the right side of the abdomen and there is question of a faint linear density in close proximity to the surgical naresh and clips in the right upper abdomen. Technologist was asked to repeat the study but on the repeat image concentrated on the left side of the abdomen. Third submitted image concentrates on the right side of the abdomen and reveals mild degree of motion. There are surgical clips in the right upper abdomen. Surgical naresh project immediately below the surgical clips. No other definite metallic radiopaque foreign body is visualized. Note: Findings telephoned to the OR charge nurse, William, 12/29/2013, 1430 hours. SL:13 12/29/2013 [facility] Consultation Notes No Data Provided for This Section Discharge Summaries No Data Provided for This Section History and Physicals No Data Provided for This Section Vital Signs Vital Sign Value Date Comments Source Heart Rate 76 12/31/2013 [facility] Temperature Oral (F) 99.3 F 12/31/2013 [facility] Diastolic (mm Hg) 83 12/31/2013 [facility] Systolic (mm Hg) 156 12/31/2013 [facility] Temperature Oral (F) 99.3 F 12/31/2013 [facility] Diastolic (mm Hg) 95 12/31/2013 [facility] Systolic (mm Hg) 182 12/31/2013 [facility] Heart Rate 84 12/31/2013 [facility] Respitory Rate 16 12/31/2013 [facility] Heart Rate 72 12/31/2013 [facility] Systolic (mm Hg) 145 12/31/2013 [facility] Temperature Oral (F) 99.0 F 12/31/2013 [facility] Diastolic (mm Hg) 78 12/31/2013 [facility] Respitory Rate 16 12/31/2013 [facility] Respitory Rate 16 12/31/2013 [facility] Weight 95 12/24/2013 [facility] BMI Calculated 30.93 12/24/2013 [facility] Height 175.26 cm 12/24/2013 [facility] Encounters Location Location Details Encounter Type Encounter Number Reason For Visit Attending Provider ADM Date DC Date Status Source [facility] Inpatient [id number] José Adolph 12/29/2013 12/31/2013 [facility] [place] [facility] [id number] Christopher Ruiz 01/13/2016 01/14/2016 [facility] [place] [facility] [place] [facility] [id number] Christopher Ruiz 01/12/2017 01/13/2017 [facility] [place] [facility] [place] [facility] [id number] Christopher Ruiz 03/21/2018 03/22/2018 [facility] [place] Procedures Procedure Code Date Perfomer Comments Source Operation on heart [id number] YUMIKO Cook,[facility] Assessment and Plan Assessment and Plan Date Source Extracted from:Title: Clinical Document Author: Mateo Alvarado MD Date: 12/31/13 IM PROGRESS NOTE (Dr. Mateo Alvarado M.D.) SUBJECTIVE Tolerate P.O. liquid so far No SOB or CP Ambulating Vitals and Temp: Vitals Tmp(F) Pulse BP RR SpO2 FIO2 12/31 08:00 99.3 84 182/95 -- --- --- 12/31 04:00 99.0 72 145/78 16 --- --- 12/31 00:00 98.7 75 141/73 16 --- --- 12/30 21:22 ---- --- ----- -- 98 --- 12/30 20:00 98.6 90 139/78 16 --- --- 24 Hr Tmax: 99.8F (37.67c) at 12/30 11:28 Vital Signs are the last 5 in the [...] Q3H Labs (Last four charted values) WBC 9.3 (DEC 31) 10.4 (DEC 30) 7.5 (DEC 24) Hgb L 12.5 (DEC 31) L 13.8 (DEC 30) 14.8 (DEC 24) Hct L 36.1 (DEC 31) L 39.7 (DEC 30) 42.2 (DEC 24) Plt 160 (DEC 31) 174 (DEC 30) 181 (DEC 24) Na 139 (DEC 31) 137 (DEC 30) 139 (DEC 24) K 4.0 (DEC 31) 3.7 (DEC 30) 3.8 (DEC 24) CO2 28 (DEC 31) 27 (DEC 30) H 33 (DEC 24) Cl 102 (DEC 31) 102 (DEC 30) 101 (DEC 24) Cr 1.0 (DEC 31) 1.0 (DEC 30) 1.0 (DEC 24) BUN 15 (DEC 31) 15 (DEC 30) 18 (DEC 24) Glucose Random H 101 (DEC 31) H 123 (DEC 30) H 118 (DEC 24) Mg 2.0 (DEC 31) L 1.7 (DEC 30) Phos L 2.4 (DEC 31) 2.6 (DEC 30) Ca 8.7 (DEC 31) 8.5 (DEC 30) 9.0 (DEC 24) IMPRESSION and PLAN DIAGNOSIS: 1. Symptomatic cholelithiasis / chronic cholecystitis with an open cholecystectomy. 2. Hypertension. 3. Hyperlipidemia. 4. Coronary artery disease with history of prior myocardial infarction. 5. Hyperglycemia. 6. Elevated CO2 level- resolved 7. Low phos PLAN: Give Phos Advance diet Pain control Possible d/c this PM if tolerating P.O. 12/31/2013 [facility] Plan of Care No Data Provided for This Section Social History Social History Date Source Social History TypeResponse Substance Abuse Use: None. IV drug use: No. Exercise Exercise frequency: 3-4 times/week. Self assessment: Good condition. Alcohol Past Smoking Status Never smoker; Exposure to Tobacco Smoke None; Cigarette Smoking Last 365 Days No; Reg Smoking Cessation Counseling No entered on: 12/29/13 12/29/2013 YUMIKO Cook Social History TypeResponse Substance Abuse Use: None, IV drug use: No Exercise Times per week: 3-4 times/week, Self assessment: Good condition Alcohol Use: Past Smoking Status Never smoker, Exposure to Tobacco Smoke None, Cigarette Smoking Last 365 Days No, Reg Smoking Cessation Counseling No 12/29/2013 [facility] Family History No Data Provided for This Section Advance Directives No Data Provided for This Section Functional Status No Data Provided for This Section
--- OUTSIDE RECORDS SUMMARY | 2019-02-17 11:40 | XMS REPORT | Summary of Care ---
Author Author [facility] [place] Organization [facility] [place] Address Unknown Phone Unavailable Encounter [facility] Derrickr_sherin(FIN) [id number] Date(s): 01/13/16 - 01/13/16 [facility] [place] [address] [place] [phone] Discharge Disposition: Home or Self Care Attending [...]
--- OUTSIDE RECORDS SUMMARY | 2019-02-17 11:41 | XMS REPORT | Summary of Care ---
Author Author [facility] - [place] Organization [facility] [place] Address Unknown Phone Unavailable Encounter [facility] Encntr_sherin(FIN) [id number] Date(s): 03/21/18 - 03/21/18 [facility] Outpatient Imaging - [place] [address] [place] [phone] Encounter Diagnosis Pain in left foot (Final) - 05/27/18 Discharge Disposition: Home or Self Care Attending Physician: Christopher Ruiz MD Referring Physician: Christopher Ruiz MD Vital Signs No [...] Procedures Procedure Date Related Diagnosis Body Site Status Operation on heart Completed Social History Social History Type Response Substance Abuse Use: None. IV drug use: No. Exercise Exercise frequency: 3-4 times/week. Self assessment: Good condition. Alcohol Past Smoking Status Never smoker; Exposure to Tobacco Smoke None; Cigarette Smoking Last 365 Days No; Reg Smoking Cessation Counseling No entered on: 12/29/13 Assessment and Plan No data available for this section
[2019-02-17] MEDS ORDERED: ASPIRIN 81 MG CHEW TAB PO ONE (12:00)
[2019-02-17 12:07] LABS: BASOPHILS % 0.6 % (0.0-1.0); BILIRUBIN,URINE NEGATIVE (NEGATIVE); CLARITY,URINE CLEAR (CLEAR); COLOR,URINE YELLOW (YELLOW); EOSINOPHILS # (AUTO) 0.1 (0.0-0.4); EOSINOPHILS % 1.3 % (0.0-6.0); HEMATOCRIT 17.1 % (38.2-49.6); KETONES,URINE NEGATIVE (NEGATIVE); LEUKOCYTE ESTERASE ,URINE NEGATIVE (NEGATIVE); LYMPHOCYTES # (AUTO) 1.7 (1.0-3.2); LYMPHOCYTES % 26.8 % (18.0-39.1); MEAN CORPUSCULAR HEMOGLOBIN 20.8 pg (28-32); MEAN CORPUSCULAR HGB CONC 28.7 g/dL (31-35); MEAN CORPUSCULAR VOLUME 72.5 fL (81-99); MONOCYTES # (AUTO) 0.7 (0.2-0.8); NEUTROPHILS # (AUTO) 3.7 (2.1-6.9); NEUTROPHILS % 59.8 % (38.7-80.0); NITRITE,URINE NEGATIVE (NEGATIVE); PLATELET COUNT 203 x10e3/uL (140-360); PROTEIN,URINE DIPSTICK NEGATIVE (NEGATIVE); RED BLOOD COUNT 2.36 x10e6/uL (4.3-5.7); RED CELL DISTRIBUTION WIDTH 17.9 % (11.7-14.4); URINE UROBILINOGEN 0.2 mg/dL (0.2 - 1)
[2019-02-17 12:13] LABS: INR 1.13; PROTHROMBIN TIME 15.1 seconds (11.9-14.5)
[2019-02-17 12:14] LABS: PARTIAL THROMBOPLASTIN TIME 28.7 seconds (23.8-35.5)
[2019-02-17 12:24] LABS: ALBUMIN 3.6 g/dL (3.5-5.0); ANION GAP 13.9 mmol/L (8-16); CALCIUM 8.5 mg/dL (8.4-10.2); CREATININE, SERUM 1.54 mg/dL (0.72-1.25); HEMOGLOBIN 4.9 g/dL (14.0-18.0); POTASSIUM 3.9 mmol/L (3.5-5.1)
[2019-02-17 12:27] LABS: BACTERIA,URINE FEW /HPF; EPITHELIAL CELLS,URINE FEW /LPF; RBC,URINE 0-5 /HPF (0-5); WBC,URINE (MAN) 0-5 /HPF (0-5)
[2019-02-17] MEDS ORDERED: SODIUM CHLORIDE 0.9% 250ML 250 ML IV ONE (12:30)
[2019-02-17 12:56] LABS: HYPOCHROMASIA MODERATE; LYMPHOCYTES % (MANUAL) 24 % (19-48); MONOCYTES % (MANUAL) 13 % (3.4-9.0); NEUTROPHILS % (MANUAL) 63 % (40-74); PLATELET ESTIMATE ADEQUATE
[2019-02-17 12:57] LABS: RBC MORPHOLOGY COMMENT ABNORMAL
--- NOTE | 2019-02-17 13:15 | Diagnostic Imaging Report ---
Chest, 1 view, 02/17/2019. History: Shortness of breath. Comparison: None available. Findings: The cardiomediastinal silhouette and pulmonary vasculature are within normal limits for a portable exam. There is no focal consolidation or pleural effusion. Median sternotomy wires are present. There are no acute osseous or soft tissue abnormalities. Impression: No acute cardiopulmonary abnormality. Signed by: Juan De La Torre on 02/17/2019 1:11 PM
--- OUTSIDE RECORDS SUMMARY | 2019-02-17 13:36 | XMS REPORT ---
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 Allergies, Adverse Reactions, Alerts This patient has no known allergies or adverse reactions. Medications This patient has no known medications. Results Test Description Test Time Test Comments Text Results Atomic Results Result Comments CHEST SINGLE (PORTABLE) 2019-02-17 13:11:00 [place] [address] Patient Name: DARELL PAZ MR #: [id number] : 1955 Age/Sex: 63/M Req #: [id number] Adm Physician: Ordered by: CHARO KWOK WRAPPER STEMMER HAND Report #: [id number] Location: ER Room/Bed: Procedure: [id number] DX/CHEST SINGLE (PORTABLE) Exam Date: 02/17/19 Exam Time: 1230 REPORT STATUS: Signed Chest, 1 view, 02/17/2019. History: Shortness of breath. Comparison: None available. Findings: The cardiomediastinal silhouette and pulmonary vasculature are within normal limits for a portable exam. There is no focal consolidation or pleural effusion. Median sternotomy wires are present. There are no acute osseous or soft tissue abnormalities. Impression: No acute cardiopulmonary abnormality. Signed by: Liza De La Torre on 02/17/2019 1:11 PM Dictated By: LIZA DE LA TORRE MD [id number] Transcribed By: AZAM on 02/17/19 1311 COPY TO: CHARO KWOK NP
--- OUTSIDE RECORDS SUMMARY | 2019-02-17 13:36 | XMS REPORT | Continuity of Care Document ---
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 Name Role Phone Parents R People Unavailable Unavailable Problems Problem Status Onset Date Classification Date Reported Comments Source Pain in left foot 05/27/2018 10/08/2018 YUMIKO Diasadena M79.672 - PAIN IN LEFT FOOT Active 03/21/2018 ZORAND [facility] I10 - ESSENTIAL (PRIMARY) HYPERTENSI Active 01/13/2016 YUMIKO Serratoa ICD 574.20 / CPT 94283 Active 12/23/2013 [facility] UNK Active 12/23/2013 [facility] Chest pain (finding) Resolved Problem 10/08/2018 [facility] Heart block (disorder) Resolved Problem 10/08/2018 YUMIKO [place],[facility] Myocardial infarction (disorder) Resolved Problem 10/08/2018 YUMIKO Serratoa,[facility] Hypertensive disorder, systemic arterial (disorder) Resolved Problem 10/08/2018 YUMIKO Cook,[facility] Dyspnea (finding) Active Problem 10/08/2018 [facility] CHOLELITHIASIS NOS Active [facility] Medications Medication Details Route Status Patient Instructions Ordering Provider Order Date Source 24 HR Metoprolol Tartrate 25 MG Extended Release Tablet [Toprol] 25 mg, 1 tab, Route: PO, Drug form: ERTAB, Daily, Start date: 01/01/14 9:00:00, Duration: 30 day, Stop date: 01/30/14 9:00:00Notes: (Same as: Toprol XL) Do Not Crush No Longer Active 01/01/2014 [facility] Lisinopril 10 mg, 1 tab, Route: PO, Drug form: TAB, Daily, Dosing Weight 95, kg, Start date: 01/01/14 9:00:00, Duration: 30 day, Stop date: 01/30/14 9:00:00Notes: (Same as: Prinivil, Zestril) No Longer Active 01/01/2014 [facility] Protonix 40 mg, 1 tab, Route: PO, Drug form: ECTAB, Daily, Start date: 01/01/14 9:00:00, Duration: 30 day, Stop date: 01/30/14 9:00:00Notes: Tablet should not be chewed or crushed. (Same as: Protonix) No Longer Active 01/01/2014 [facility] Allopurinol 100 mg, 1 tab, Route: PO, Drug form: TAB, BID, Dosing Weight 95, kg, Start date: 12/31/13 17:00:00, Duration: 30 day, Stop date: 01/30/14 9:00:00Notes: (Same as: Zyloprim) Inactive 12/31/2013 [facility] Aspirin 81 MG Enteric Coated Tablet 81 mg, 1 tab, Route: PO, Drug form: ECTAB, Daily, Dosing Weight 95, kg, Start date: 12/31/13 12:00:00, Duration: 30 day, Stop date: 01/30/14 9:00:00Notes: Do not crush or chew. (Same As: Ecotrin) Inactive 12/31/2013 [facility] Clonidine Hydrochloride 0.1 MG Oral Tablet 0.1 mg, 1 tab, Route: PO, Drug form: TAB, Q4H, Dosing Weight 95, kg, PRN Hypertension, Start date: 12/31/13 11:17:00, Duration: 30 day, Stop date: 01/30/14 11:16:00Notes: (Same As: Catapres) Inactive 12/31/2013 [facility] Acetaminophen 325 MG / Hydrocodone Bitartrate 5 MG Oral Tablet [Eaton 5/325] 1 tab, PO, Q4H, for pain, # 30 tab, 0 Refill(s) Active 12/31/2013 [facility] Neutra-Phos 1 pkt, Route: PO, Drug Form: PDR/REC, Dosing Weight 95, kg, ONCE, Start date: 12/31/13 11:00:00, Stop date: 12/31/13 11:00:00Notes: (Same as: Neutra-Phos) Each 1.25 gm pkt has 250mg phosphorous. Mix w/2.5oz water and stir. Inactive 12/31/2013 [facility] Metoprolol 5 mg, 5 mL, Route: IVP, Drug form: INJ, Q8H, Dosing Weight 95, kg, Start date: 12/30/13 16:00:00, Duration: 30 day, Stop date: 01/29/14 8:00:00Notes: (Same as: Lopressor) Push over 2 minutes No Longer Active 12/30/2013 [facility] Magnesium Sulfate 2 gm, 50 mL, Route: IV, Drug form: INJ, ONCE, Dosing Weight 95, kg, Start date: 12/30/13 9:14:00, Stop date: 12/30/13 9:14:00 Inactive 12/30/2013 [facility] Protonix 40 mg, Route: IVP, Drug form: INJ, Daily, Dosing Weight 95, kg, Patient is NPO, Start date: 12/30/13 9:00:00, Duration: 30 day, Stop date: 01/28/14 9:00:00Notes: For IV push reconstitute with 10 ml 0.9% sodium chloride and push over 2 minutes. (Same as: Protonix) No Longer Active 12/30/2013 [facility] Morphine 2 mg, 1 mL, Route: IV, Drug form: INJ, Q3H, Dosing Weight 95, kg, PRN Pain Score 6-10, Start date: 12/30/13 8:12:00, Duration: 30 day, Stop date: 01/29/14 8:11:00Notes: (Same as:MORPhine Sulfate) No Longer Active 12/30/2013 [facility] Nitroglycerin 0.02 MG/MG Topical Ointment 0.5 inch, Route: TOP, Drug Form: OINT, Dosing Weight 95, kg, Q8H, Start date: 12/30/13 0:00:00, Duration: 30 day, Stop date: 01/28/14 16:00:00Notes: 1 gram is approximately 1 inch of nitroglycerin ointment (20 mg NTG per gram) (Same as:Nitro-Bid) No Longer Active 12/30/2013 [facility] Metoprolol 2.5 mg, 2.5 mL, Route: IVP, Drug form: INJ, BID, Dosing Weight 95, kg, Start date: 12/29/13 17:00:00, Duration: 30 day, Stop date: 01/28/14 9:00:00Notes: (Same as: Lopressor) Push over 2 minutes No Longer Active 12/29/2013 [facility] Enalapril 0.625 mg, 0.5 mL, Route: IVP, Drug form: INJ, Q6H, Dosing Weight 95, kg, PRN Hypertension, Start date: 12/29/13 16:23:00, Duration: 30 day, Stop date: 01/28/14 16:22:00Notes: (Same as: Vasotec-IV) No Longer Active 12/29/2013 [facility] Sodium Chloride 0.154 MEQ/ML Injectable Solution 1,000 mL, Rate: 75 ml/hr, Infuse over: 13.3 hr, Route: IV, Dosing Weight 95 kg, Total Volume: 1,000, Start date: 12/29/13 14:18:00, Duration: 30 day, Stop date: 01/28/14 14:17:00 No Longer Active 12/29/2013 [facility] Ofirmev 1,000 mg, 100 mL, Route: IV, Drug form: INJ, ONCE, Dosing Weight 95, kg, PRN Pain Score 1-3, for > or=50 kg, Start date: 12/29/13 14:06:00Notes: Infuse over 15 minutes Do not exceed 4gm/day of acetaminophen Inactive 12/29/2013 [facility] Acetaminophen 325 MG / Hydrocodone Bitartrate 10 MG Oral Tablet [Eaton 10/325] 1 tab, Route: PO, Drug Form: TAB, Dosing Weight 95, kg, Q4H, PRN Pain Score 4-6, Start date: 12/29/13 14:06:00, Duration: 30 day, Stop date: 01/28/14 14:05:00Notes: Do not exceed 4gm/day of acetaminophen. (Same as: Eaton 325/10) Inactive 12/29/2013 [facility] Ondansetron 4 mg, Route: IVP, ONCE, Dosing Weight 95, kg, PRN Nausea & Vomiting, Start date: 12/29/13 14:06:00 Inactive 12/29/2013 [facility] Naloxone 0.04 mg, 0.1 mL, Route: IVP, Drug form: INJ, Q2MIN, Dosing Weight 95, kg, PRN Narcotic Reversal, Start date: 12/29/13 14:06:00, Duration: 8 doses or times, Stop date: Limited # of timesNotes: Same as Narcan Inactive 12/29/2013 [facility] Meperidine 12.5 mg, 0.25 mL, Route: IVP, Drug form: INJ, Q30Min, Dosing Weight 95, kg, PRN Other -See Comment, For shivering, Start date: 12/29/13 14:06:00, Duration: 2 doses or times, Stop date: Limited # of t imesNotes: (Same As: Demerol) Inactive 12/29/2013 [facility] Flumazenil 0.2 mg, 2 mL, Route: IVP, Drug form: INJ, PRN, Dosing Weight 95, kg, PRN Benzodiazepine Reversal, Initial dose, Start date: 12/29/13 14:06:00, Duration: 30 day, Stop date: 01/28/14 14:05:00Notes: (Same as: Romazicon) Inactive 12/29/2013 [facility] Hydromorphone 0.5 mg, 0.5 mL, Route: IVP, Drug form: INJ, Q5Min, Dosing Weight 95, kg, PRN Pain Score 7-10, Start date: 12/29/13 14:06:00, Duration: 4 doses or times, Stop date: Limited # of times Inactive 12/29/2013 [facility] Fentanyl 25 microgram, 0.5 mL, Route: IVP, Drug form: INJ, Q5Min, Dosing Weight 95, kg, PRN Pain Score 4-6, Start date: 12/29/13 14:06:00, Duration: 4 doses or times, Stop date: Limited # of timesNotes: (Same as: Sublimaze) Preservative free. Inactive 12/29/2013 [facility] Oxycodone 5 mg, 1 tab, Route: PO, Drug form: TAB, Q4H, Dosing Weight 95, kg, PRN Pain Score 4-6, Start date: 12/29/13 14:06:00, Duration: 30 day, Stop date: 01/28/14 14:05:00Notes: (Same as: OxyIR) Inactive 12/29/2013 [facility] Ancef 2 gm, 100 mL, Route: IVPB, Drug form: INJ, ONCE, Dosing Weight 95, kg, Start date: 12/29/13 9:59:00, Duration: 1 doses or times, Stop date: 12/29/13 9:59:00Notes: Same as: Ancef Inactive 12/29/2013 [facility] Calcium Chloride 0.0014 MEQ/ML / Potassium Chloride 0.004 MEQ/ML / Sodium Chloride 0.103 MEQ/ML / Sodium Lactate 0.028 MEQ/ML Injectable Solution 1,000 mL, Rate: 25 ml/hr, Infuse over: 40 hr, Route: IV, Dosing Weight 95 kg, Total Volume: 1,000, Start date: 12/29/13 9:57:00, Duration: 30 day, Stop date: 01/28/14 9:56:00 Inactive 12/29/2013 [facility] allopurinol 100 mg oral tablet 100 mg=1 tab, PO, BID, # 60 tab, 0 Refill(s) Active 12/24/2013 [facility] lisinopril 10 mg oral tablet 10 mg=1 tab, PO, Daily, # 30 tab, 0 Refill(s) Active 12/24/2013 [facility] metoprolol 25 mg oral tablet, extended release 25 mg, PO, Daily, # 30 tab, 0 Refill(s) Active 12/24/2013 [facility] Aspirin 81 MG Enteric Coated Tablet 81 mg=1 tab, PO, Daily, # 0 tab, 0 Refill(s) Active 12/24/2013 [facility] Allergies, Adverse Reactions, Alerts No Known Medication [...] should be multiplied by the estimated BMI. [facility] CHEM PANEL Bili Total 1.4 0.2 - 1.3 12/31/2013 [facility] CHEM PANEL Alk Phos 57 39 - 136 12/31/2013 [facility] CHEM PANEL Albumin Lvl 3.4 3.5 - 5.0 12/31/2013 [facility] CHEM PANEL Globulin 3.5 2.0 - 4.0 12/31/2013 [facility] CHEM PANEL Total Protein 6.9 6.4 - 8.4 12/31/2013 [facility] CHEM PANEL AST 49 0 - 37 12/31/2013 [facility] CHEM PANEL A/G Ratio 1.0 0.7 - 1.6 12/31/2013 [facility] CHEM PANEL ALT 38 0 - 65 12/31/2013 [facility] CHEM PANEL BUN 15 7 - 22 12/31/2013 [facility] CHEM PANEL Creatinine Lvl 1.0 0.5 - 1.4 12/31/2013 [facility] CHEM PANEL Glucose Lvl 101 70 - 99 12/31/2013 <sup>4</sup>Interpretive Data: Adult reference range values reflect the clinical guidelines
of the [place] [employer]. [facility] CHEM PANEL B/C Ratio 15 6 - 25 12/31/2013 [facility] CHEM PANEL Calcium Lvl 8.7 8.5 - 10.5 12/31/2013 [facility] CHEM PANEL AGAP 13.0 10.0 - 20.0 12/31/2013 [facility] CHEM PANEL Sodium Lvl 139 135 - 145 12/31/2013 [facility] CHEM PANEL Chloride Lvl 102 95 - 109 12/31/2013 [facility] CHEM PANEL Potassium Lvl 4.0 3.5 - 5.1 12/31/2013 [facility] CHEM PANEL CO2 28 24 - 32 12/31/2013 [facility] CHEM PANEL Magnesium Lvl 2.0 1.8 - 2.4 12/31/2013 [facility] CHEM PANEL Phosphorus 2.4 2.5 - 4.5 12/31/2013 [facility] HEMATOLOGY Platelet 160 133 - 450 12/31/2013 [facility] HEMATOLOGY MPV 8.7 7.4 - 10.4 12/31/2013 [facility] HEMATOLOGY RDW 13.8 11.5 - 14.5 12/31/2013 [facility] HEMATOLOGY Hct 36.1 42.0 - 54.0 12/31/2013 [facility] HEMATOLOGY MCV 83.6 80.0 - 94.0 12/31/2013 [facility] [place] MCH 29.1 27.0 - 31.0 12/31/2013 [facility] [place] MCHC 34.8 32.0 - 36.0 12/31/2013 [facility] [place] Hgb 12.5 14.0 - 18.0 12/31/2013 [facility] [place] WBC 9.3 3.7 - 10.4 12/31/2013 [facility] [place] RBC 4.31 4.70 - 6.10 12/31/2013 [facility] CHEM PANEL Magnesium Lvl 1.7 1.8 - 2.4 12/30/2013 [facility] CHEM PANEL eGFR 83 12/30/2013 <sup>2</sup>Result Comment: [...] should be multiplied by the estimated BMI. [facility] CHEM PANEL AST 56 0 - 37 12/30/2013 [facility] CHEM PANEL Alk Phos 63 39 - 136 12/30/2013 [facility] CHEM PANEL Bili Total 0.8 0.2 - 1.3 12/30/2013 [facility] CHEM PANEL Calcium Lvl 8.5 8.5 - 10.5 12/30/2013 [facility] CHEM PANEL Total Protein 7.6 6.4 - 8.4 12/30/2013 [facility] CHEM PANEL Albumin Lvl 3.6 3.5 - 5.0 12/30/2013 [facility] CHEM PANEL AGAP 11.7 10.0 - 20.0 12/30/2013 [facility] CHEM PANEL B/C Ratio 15 6 - 25 12/30/2013 [facility] CHEM PANEL Globulin 4.0 2.0 - 4.0 12/30/2013 [facility] CHEM PANEL A/G Ratio 0.9 0.7 - 1.6 12/30/2013 [facility] CHEM PANEL Potassium Lvl 3.7 3.5 - 5.1 12/30/2013 [facility] CHEM PANEL Sodium Lvl 137 135 - 145 12/30/2013 [facility] CHEM PANEL BUN 15 7 - 22 12/30/2013 [facility] CHEM PANEL Creatinine Lvl 1.0 0.5 - 1.4 12/30/2013 [facility] CHEM PANEL Chloride Lvl 102 95 - 109 12/30/2013 [facility] CHEM PANEL CO2 27 24 - 32 12/30/2013 [facility] CHEM PANEL ALT 43 0 - 65 12/30/2013 [facility] CHEM PANEL Glucose Lvl 123 70 - 99 12/30/2013 <sup>5</sup>Interpretive Data: Adult reference range values reflect the clinical guidelines
of the [place] [employer]. [facility] CHEM PANEL Phosphorus 2.6 2.5 - 4.5 12/30/2013 [facility] HEMATOLOGY MPV 9.2 7.4 - 10.4 12/30/2013 [facility] HEMATOLOGY Platelet 174 133 - 450 12/30/2013 [facility] HEMATOLOGY RDW 13.6 11.5 - 14.5 12/30/2013 [facility] [place] MCH 29.1 27.0 - 31.0 12/30/2013 [facility] HEMATOLOGY MCHC 34.7 32.0 - 36.0 12/30/2013 [facility] HEMATOLOGY Hct 39.7 42.0 - 54.0 12/30/2013 [facility] HEMATOLOGY MCV 83.8 80.0 - 94.0 12/30/2013 [facility] HEMATOLOGY RBC 4.74 4.70 - 6.10 12/30/2013 [facility] [place] WBC 10.4 3.7 - 10.4 12/30/2013 [facility] HEMATOLOGY Hgb 13.8 14.0 - 18.0 12/30/2013 [facility] IMMUNOLOGY Hep C Ab Negative *NA* (12/30/13 6:12 AM) Negative 12/30/2013 [facility] Hep Bs Ag Negative *NA* (12/30/13 6:12 AM) Negative 12/30/2013 [facility] LIPIDS VLDL 21 12/30/2013 [facility] LIPIDS LDL (Calculated) 87 <=99 mg/dL 12/30/2013 [facility] LIPIDS Chol 144 <=199 mg/dL 12/30/2013 [facility] LIPIDS HDL 36 >=61 mg/dL 12/30/2013 [facility] LIPIDS CHD Risk 4.00 4.00 - 7.30 12/30/2013 [facility] LIPIDS Trig 103 <=149 mg/dL 12/30/2013 [facility] SPECIAL CHEMISTRY Hgb A1C 5.5 <=5.6 % 12/30/2013 [facility] THYROID PANEL TSH 0.719 0.360 - 3.740 12/30/2013 [facility] URINE AND STOOL UA Color Ltyellow 12/24/2013 [facility] URINE AND STOOL UA Sq Epi None Seen 12/24/2013 [facility] URINE AND STOOL UA WBC <1 0 - 5 12/24/2013 [facility] URINE AND STOOL UA Leuk Est Negative (12/24/13 12:30 PM) Negative 12/24/2013 [facility] URINE AND STOOL UA Nitrite Negative (12/24/13 12:30 PM) Negative 12/24/2013 [facility] URINE AND STOOL UA Urobilinogen 2.0 0.1 - 1.0 12/24/2013 [facility] URINE AND STOOL UA RBC 1 0 - 2 12/24/2013 [facility] URINE AND STOOL UA pH 8.0 5.0 - 8.0 12/24/2013 [facility] URINE AND STOOL UA Spec Grav 1.015 <=1.030 12/24/2013 [facility] URINE AND STOOL UA Blood Negative (12/24/13 12:30 PM) Negative 12/24/2013 [facility] URINE AND STOOL UA Bili Negative *NA* (12/24/13 12:30 PM) Negative 12/24/2013 [facility] URINE AND STOOL UA Ketones Negative mg/dL Negative mg/dL 12/24/2013 [facility] URINE AND STOOL UA Glucose Negative mg/dL Negative mg/dL 12/24/2013 [facility] URINE AND STOOL UA Protein Negative mg/dL Negative mg/dL 12/24/2013 [facility] URINE AND STOOL UA Turbidity Clear (12/24/13 12:30 PM) Clear 12/24/2013 [facility] CHEM PANEL Amylase Lvl 75 25 - 115 12/24/2013 [facility] CHEM PANEL Globulin 4.0 2.0 - 4.0 12/24/2013 [facility] CHEM PANEL A/G Ratio 1.0 0.7 - 1.6 12/24/2013 [facility] CHEM PANEL AGAP 8.8 10.0 - 20.0 [...] values reflect the clinical guidelines
of the [place] [employer]. [place] CHEM PANEL BUN 18 [...] Bili Total 0.5 0.2 - 1.3 12/24/2013 [facility] HEMATOLOGY Basophils # 0.1 0.0 - 0.2 12/24/2013 [facility] HEMATOLOGY Monocytes 10.5 2.0 - 12.0 12/24/2013 [facility] HEMATOLOGY Lymphocytes 29.9 20.0 - 40.0 12/24/2013 [facility] HEMATOLOGY Segs 56.8 45.0 - 75.0 12/24/2013 [facility] HEMATOLOGY Eosinophils 1.5 0.0 - 4.0 12/24/2013 [facility] HEMATOLOGY Basophils 1.3 0.0 - 1.0 12/24/2013 [facility] HEMATOLOGY Eosinophils # 0.1 0.0 - 0.5 12/24/2013 [facility] HEMATOLOGY Monocytes # 0.8 0.0 - 0.8 12/24/2013 [facility] [place] Lymphocytes # 2.2 1.0 - 5.5 12/24/2013 [facility] [place] Segs-Bands # 4.3 1.5 - 8.1 12/24/2013 [facility] [place] MPV 9.1 7.4 - 10.4 12/24/2013 [facility] [place] MCHC 35.1 32.0 - 36.0 12/24/2013 [facility] [place] Platelet 181 133 - 450 12/24/2013 [facility] [place] RDW 13.8 11.5 - 14.5 12/24/2013 [facility] [place] MCH 29.2 27.0 - 31.0 12/24/2013 [facility] [place] MCV 83.2 80.0 - 94.0 12/24/2013 [facility] [place] Hct 42.2 42.0 - 54.0 12/24/2013 [facility] [place] Hgb 14.8 14.0 - 18.0 12/24/2013 [facility] [place] RBC 5.07 4.70 - 6.10 12/24/2013 [facility] [place] WBC 7.5 3.7 - 10.4 12/24/2013 [facility] Pathology Reports No Data Provided for This [...] nurse, William, 12/29/2013, 1430 hours. SL:13 12/29/2013 [facility] Consultation Notes No Data Provided for This Section Discharge Summaries No Data Provided for This Section History and Physicals No Data Provided for This Section Vital Signs Vital Sign Value Date Comments Source Heart Rate 76 12/31/2013 [facility] Temperature Oral (F) 99.3 F 12/31/2013 [facility] Diastolic (mm Hg) 83 12/31/2013 [facility] Systolic (mm Hg) 156 12/31/2013 [facility] Temperature Oral (F) 99.3 F 12/31/2013 [facility] Diastolic (mm Hg) 95 12/31/2013 [facility] Systolic (mm Hg) 182 12/31/2013 [facility] Heart Rate 84 12/31/2013 [facility] Respitory Rate 16 12/31/2013 [facility] Heart Rate 72 12/31/2013 [facility] Systolic (mm Hg) 145 12/31/2013 [facility] Temperature Oral (F) 99.0 F 12/31/2013 [facility] Diastolic (mm Hg) 78 12/31/2013 [facility] Respitory Rate 16 12/31/2013 [facility] Respitory Rate 16 12/31/2013 [facility] Weight 95 12/24/2013 [facility] BMI Calculated 30.93 12/24/2013 [facility] Height 175.26 cm 12/24/2013 [facility] Encounters Location Location Details Encounter Type Encounter Number Reason For Visit Attending Provider ADM Date DC Date Status Source [facility] Inpatient [id number] José Adolph 12/29/2013 12/31/2013 [facility] [id number] Christopher Ruiz 01/13/2016 01/14/2016 [facility] [id number] Christopher Ruiz 01/12/2017 01/13/2017 [facility] [id number] Christopher Ruiz 03/21/2018 03/22/2018 [facility] Procedures Procedure Code Date Perfomer Comments Source Operation on heart [id number] YUMIKO Cook,[facility] Assessment and Plan Assessment and Plan Date [...] d/c this PM if tolerating P.O. 12/31/2013 [facility] Plan of Care No Data Provided for [...] No, Reg Smoking Cessation Counseling No 12/29/2013 [facility] Family History No Data Provided for This Section Advance Directives No Data Provided for This Section Functional Status No Data Provided for This Section
[2019-02-17] MEDS ORDERED: FAMOTIDINE 20 MG/2 ML VIAL IV ONE ×2 (14:00→18:32)
[2019-02-17] MEDS ORDERED: FUROSEMIDE INJ 10 MG/ML 4 ML VIAL IV ONE (14:00)
[2019-02-17 14:50] LABS: CREATINE KINASE MB 0.9 ng/mL (0-5.0)
--- NOTE | 2019-02-17 15:30 | NUR ---
BLOOD TRANSFUSION INITIATED. EDUCATED PATIENT ON THE S/S OF TRANSFUSION REACTION, VERBALIZED UNDERSTANDING. PATIENT AWAKE AND ALERT LAYING IN BED. RESP EVEN AND UNLABORED. SKIN PALE WARM AND DRY. NO SIGNS OF ACUTE DISTRESS NOTED AT THIS TIME.
--- NOTE | 2019-02-17 15:45 | NUR ---
NO S/S OF TRANSFUSION REACTION NOTED AFTER FIRST 15MIN OF BLOOD TRANSFUSION. PATIENT LAYING IN BED WITH EYES CLOSED. SKIN PALE WARM AND DRY. RESP EVEN AND UNLABORED. DENIES ANY C/O AT THIS TIME. SPOUSE AT BEDSIDE. INSTRUCTED PATIENT AND FAMILY TO NOTIFY PRIMARY NURSE,DALIA TAPIA FOR ANY S/S OF TRANSFUSION,VERBALIZED UNDERSTANDING.
[2019-02-17] MEDS ORDERED: FUROSEMIDE INJ 10 MG/ML 4 ML VIAL ONE (18:31)
[2019-02-17 20:00] VITALS: BP 172/73
[2019-02-17 21:00] VITALS: BP 172/73
[2019-02-17] MEDS ORDERED: SODIUM CHLORIDE 0.9% 250ML 250 ML ONE (22:01)
--- NOTE | 2019-02-17 22:30 | NUR ---
BLOOD TRANSFUSION INITIATED. VERIFIED WITH 2ND RN. MONITOR PATIENT FIRST 15MINS. VITAL SIGN STABLE. NO S/S REACTION NOTED. CONTINUE TO MONITOR CLOSELY
[2019-02-17 22:38] LABS: CREATINE KINASE MB 0.7 ng/mL (0-5.0)
[2019-02-18] VITALS (7 sets, daily range): BP systolic 111–148; BP diastolic 53–74
--- NOTE | 2019-02-18 01:00 | NUR ---
BLOOD TRANSFUSION COMPLETED. VITAL SIGN STABLE. NO S/S OF REACTION. CONTINUE TO MONITOR CLOSELY
[2019-02-18 05:23] LABS: BASOPHILS # (AUTO) 0.1 (0.0-0.1); EOSINOPHILS # (AUTO) 0.2 (0.0-0.4); EOSINOPHILS % 2.3 % (0.0-6.0); HEMATOCRIT 23.8 % (38.2-49.6); HEMOGLOBIN 7.3 g/dL (14.0-18.0); LYMPHOCYTES # (AUTO) 1.3 (1.0-3.2); LYMPHOCYTES % 17.7 % (18.0-39.1); MEAN CORPUSCULAR HGB CONC 30.7 g/dL (31-35); MEAN CORPUSCULAR VOLUME 74.8 fL (81-99); MONOCYTES # (AUTO) 0.8 (0.2-0.8); MONOCYTES % 10.8 % (4.4-11.3); NEUTROPHILS # (AUTO) 4.8 (2.1-6.9); NEUTROPHILS % 67.9 % (38.7-80.0); PLATELET COUNT 225 x10e3/uL (140-360); RED BLOOD COUNT 3.18 x10e6/uL (4.3-5.7); RED CELL DISTRIBUTION WIDTH 18.5 % (11.7-14.4)
[2019-02-18 05:43] LABS: ANION GAP 13.2 mmol/L (8-16); CALCIUM 9.1 mg/dL (8.4-10.2); CREATININE, SERUM 1.41 mg/dL (0.72-1.25); POTASSIUM 4.2 mmol/L (3.5-5.1)
[2019-02-18 06:11] LABS: CREATINE KINASE MB 0.6 ng/mL (0-5.0)
[2019-02-18] MEDS: FUROSEMIDE INJ 10 MG/ML 2 ML VIAL IV SCH (08:28)
[2019-02-18] MEDS: FAMOTIDINE 20 MG TAB PO SCH ×2 (08:28→17:04)
[2019-02-18 14:59] LABS: CREATINE KINASE MB 0.7 ng/mL (0-5.0)
--- NOTE | 2019-02-18 15:37 | NUR ---
Nutrition Screen Note RD Recommendation for Physician: -Continue cardiac diet as ordered Plan of Care: RD following, monitoring for tolerance and adequacy, diet education Nutrition reason for involvement: Diagnosis Primary Diagnose(s): anemia. CHF PMH: TIA, HLD, HTN, CAD, obesity Ht: 69in Wt: 212lb BMI: 31.3kg/m2 IBW: 160lb +/- 10% RD Assessment: (02/18) Chart reviewed. Labs and meds reviewed. 63yo M, who was admitted for anemia and CHF. BNP was elevated at 501. Pt denied any history of CHF. Pt reported good appetite. No GI complains reported. LBM 02/18. Pt denied any chewing or swallowing difficulty. Weight has been stable. Family was interested in more information on heart healthy diet. Diet education was given as requested. All questions have been answered. Will continue to monitor and follow. Current Diet: cardiac diet Malnutrition Evaluation (02/18/2019) The patient does not meet criteria for a specified degree of malnutrition at this time. Will re-evaluate at follow-up as appropriate. Diet Education Needs Assessment: Diet education indicated, pt and family were agreeable. Learner(s): pt and family Time spent: 20minutes Barriers: No barriers identified. Cultural/Language Modifications: No cultural/language modifications noted. Pt and family speak Polish. Readiness: Pt and family were eager to learn. Method: Handout, discussion Topics: Heart healthy diet (sodium, fat, fiber, physical activity) Understanding/Compliance: Expect fair understanding/compliance from pt. Will benefit from reinforcement. Nutrition Care Level: low Signed: Stefanie Hurd, MS, RD, LD
--- NOTE | 2019-02-18 15:55 | NUR ---
Visit made by the Spiritual Care Department Pastoral Visitor, Teresa Amaya. PV provided pastoral presence, prayer, hospitality, and supportive listening. Pastoral Visitor informed pt/family of the scope of Research Animal Facility Supervisor Services and availability. AMIRA AGUILAR Cross Cut Saw Operator Spiritual Care Department O: [phone] Pager: [phone] ([phone] number calling from)
--- NOTE | 2019-02-18 18:15 | Consultation ---
DATE OF CONSULTATION: Cardiology Consultation CHIEF COMPLAINT: The patient is a 63-year-old with shortness of breath and weakness. HISTORY OF PRESENT ILLNESS: The patient is a 63-year-old, who came to the emergency room with extreme dyspnea and extreme weakness. The patient felt like he could not walk 10 feet without being exhausted. The patient reported some melena every day for a week last month. The patient was found to have a hemoglobin of 4.9. The patient was transfused with packed red blood cells and his symptoms improved dramatically. PAST MEDICAL HISTORY: Significant for: 1. Previous coronary artery bypass grafting in 2011. 2. Kidney stones. 3. Hypertension. MEDICATIONS: At home include: 1. Aspirin. 2. Metoprolol. 3. Hydralazine. 4. Hydrochlorothiazide. 5. Allopurinol. 6. Simvastatin. 7. Lisinopril. SOCIAL HISTORY: The patient did smoking, he quit 10 years ago. The patient does not drink. FAMILY HISTORY: There is no known family history of coronary artery disease. PHYSICAL EXAMINATION: GENERAL: The patient is a well-developed, well-nourished male, in no obvious distress. VITAL SIGNS: Included a temperature of 98.6, blood pressure of 120/70, pulse was 68. HEAD, EARS, EYES, NOSE, AND THROAT: The patient's cranium was normocephalic and atraumatic. Extraocular muscles were intact. Sclerae were anicteric. Pupils were equal, round, reactive to light. There is no pallor or cyanosis of the oral mucosa. There is no erythema or edema of the throat. NECK: Supple. No jugular venous distention. No carotid bruits. CHEST: Clear to auscultation and percussion. CARDIAC: Demonstrated a normal S1 and S2 with a short 2/6 systolic murmur. ABDOMINAL: Demonstrated good bowel sounds. No tenderness and no masses. EXTREMITIES: There was no clubbing, no cyanosis, and no edema. NEUROLOGICAL: The patient was alert and oriented x3. Cranial nerves II through XII were intact. Motor strength was +5/+5 in all limbs. The patient's EKG demonstrated normal sinus rhythm with nonspecific ST and T-wave changes. IMPRESSION: The patient is a 63-year-old with severe anemia and gastrointestinal bleed. RECOMMENDATIONS: 1. Patient will need to be transfused with packed red blood cells as needed. 2. GI consult has been called and the patient will need an endoscopy and colonoscopy to evaluate the source of bleeding. 3. The patient is cleared from a cardiac standpoint for any endoscopic procedures. MD ANDREA Shore/MODL /[id number] cc: Bennie Lucia MD
--- NOTE | 2019-02-18 19:03 | NUR ---
Sitting on chair, call light within reach, at bedside. No s/s of acute distress noted. Report to be given to oncoming nurse of patient's status.
--- NOTE | 2019-02-18 19:20 | NUR ---
Patient visited in room during nursing rounds. Patient alert and oriented x3. No distress or discomfort noted. Pt ambulatory in room prn. Family at bedside visiting. Call webber within reach.
[2019-02-18] MEDS: METOPROLOL SUCCINATE 25 MG TAB XL PO SCH (21:10)
[2019-02-18] MEDS: SIMVASTATIN 20 MG TAB PO SCH (21:10)
--- NOTE | 2019-02-18 22:00 | NUR ---
Received phone call from Dr. Harish Luu and was given order to change pt diet from cardiac to clear liquid diet now. MD also ordered to give pt dulcolax 20mg now then another 20mg dulcolax 2 hours later. Possible EGD and Colonoscopy tomorrow (02/19/19). MD to visit pt sugar.
[2019-02-18] MEDS: BISACODYL 5 MG TAB EC PO STA ×2 (22:20→23:23)
[2019-02-19] VITALS (8 sets, daily range): BP systolic 113–152; BP diastolic 54–74
[2019-02-19] MEDS ORDERED: BISACODYL 5 MG TAB EC PO ONE
--- NOTE | 2019-02-19 01:08 | NUR ---
Dr. Esau Luu came and visited pt in room. MD talked to patient and aware of pt condition. MD informed pt of plan for EGD this morning (02/19/19). Consent to be signed by patient today.
--- NOTE | 2019-02-19 01:28 | NUR ---
Patient signed consent form for EGD. Pt aware will be allowed to eat Clear Liquid diet breakfast then start to be NPO after.
[2019-02-19 04:12] LABS: BASOPHILS # (AUTO) 0.1 (0.0-0.1); EOSINOPHILS # (AUTO) 0.2 (0.0-0.4); EOSINOPHILS % 2.4 % (0.0-6.0); HEMATOCRIT 24.2 % (38.2-49.6); HEMOGLOBIN 7.5 g/dL (14.0-18.0); LYMPHOCYTES # (AUTO) 1.6 (1.0-3.2); LYMPHOCYTES % 20.9 % (18.0-39.1); MEAN CORPUSCULAR HEMOGLOBIN 22.8 pg (28-32); MEAN CORPUSCULAR VOLUME 73.6 fL (81-99); MONOCYTES # (AUTO) 0.8 (0.2-0.8); NEUTROPHILS # (AUTO) 5.1 (2.1-6.9); NEUTROPHILS % 65.4 % (38.7-80.0); PLATELET COUNT 226 x10e3/uL (140-360); RED BLOOD COUNT 3.29 x10e6/uL (4.3-5.7); RED CELL DISTRIBUTION WIDTH 18.9 % (11.7-14.4)
[2019-02-19 04:17] LABS: CALCIUM 9.1 mg/dL (8.4-10.2); CREATININE, SERUM 1.34 mg/dL (0.72-1.25)
[2019-02-19 04:40] LABS: FERRITIN 6.39 ng/mL (21.81-274.66)
[2019-02-19 04:41] LABS: FERRITIN 6.54 ng/mL (21.81-274.66); THYROID STIMULATING HORMONE 1.847 uIU/mL (0.350-4.940)
[2019-02-19 04:53] LABS: FOLATE 10.5 ng/mL (7.0-15.4)
[2019-02-19] MEDS: FAMOTIDINE 20 MG TAB PO SCH ×2 (06:29→16:30)
--- NOTE | 2019-02-19 07:00 | NUR ---
rounded with hourly shift nurse, patient sitting up in bedside chair in no distress with at bedside. call webber within reach and bed in lowest position.
[2019-02-19] MEDS: FUROSEMIDE INJ 10 MG/ML 2 ML VIAL IV SCH (08:00)
[2019-02-19] MEDS: METOPROLOL SUCCINATE 25 MG TAB XL PO SCH ×2 (08:00→20:00)
[2019-02-19] MEDS: ALLOPURINOL 100 MG TAB PO SCH (08:00)
[2019-02-19] MEDS: LISINOPRIL 10 MG TAB PO SCH (08:00)
[2019-02-19] MEDS: FERROUS SULFATE 325 MG TAB PO SCH ×2 (08:45→17:00)
[2019-02-19] MEDS: HYDRALAZINE HCL 25 MG TAB PO SCH ×3 (08:45→20:00)
[2019-02-19] MEDS: ASCORBIC ACID 500 MG TAB PO SCH ×2 (09:00→17:00)
--- NOTE | 2019-02-19 18:18 | NUR ---
patient alert and oriented, leaving unit via hospital bed for EGD at this time.
[2019-02-19] MEDS ORDERED: PROPOFOL IV EMULSION 10 MG/ML 20 ML VIAL ONE (18:32)
--- NOTE | 2019-02-19 18:51 | NUR ---
handoff report given to oncoming nurse.
[2019-02-19] MEDS ORDERED: PEG (High)/E-LYTE SOLN 4,000 ML BTL PO NR (19:00)
--- NOTE | 2019-02-19 19:37 | Operative Report ---
DATE OF PROCEDURE: 02/19/2019 SURGEON: Harish Luu MD PROCEDURE: EGD with biopsies. INDICATIONS FOR EGD: Anemia, history of melena. MEDICATIONS: The patient was done under MAC, please see anesthesiologist's note. PROCEDURE IN DETAIL: With the patient in left lateral decubitus position, a flexible fiberoptic Olympus gastroscope was introduced into the esophagus under direct visualization without any difficulty. There was some patchy erythema noted in distal esophagus. The scope was then advanced with ease into the stomach. Mucosa overlying the antrum and the body revealed some diffuse erythema, low-grade to moderate edema, and biopsies were obtained and sent to stain for H. pylori. The pylorus was of normal contour and shape, it was intubated with ease and the scope was advanced all the way to the second portion of the duodenum. Biopsies were obtained from the second portion of the duodenum. The scope was then withdrawn back into the stomach and retroflexed mucosa overlying the fundus and cardia appeared to be within normal limits. The scope was then straightened out, it was subsequently withdrawn. The patient tolerated the procedure well. IMPRESSION: 1. Distal esophagitis, mild. 2. Gastritis, biopsied, biopsies sent to stain for H. pylori. PLAN: 1. Follow up histology. 2. Findings do not explain the patient's anemia, will need a colonoscopy. Harish Luu MD [facility] [place]/[facility] /[id number] cc: Bennie Lucia MD
[2019-02-19] MEDS: SIMVASTATIN 20 MG TAB PO SCH (20:06)
[2019-02-20 00:53] VITALS: BP 118/57
[2019-02-20] MEDS ORDERED: ASCORBIC ACID500 MG PO (05:29)
[2019-02-20] MEDS ORDERED: FERROUS SULFAT325 MG PO (05:29)
[2019-02-20 06:00] LABS: BASOPHILS # (AUTO) 0.1 (0.0-0.1); BASOPHILS % 1.4 % (0.0-1.0); EOSINOPHILS # (AUTO) 0.2 (0.0-0.4); EOSINOPHILS % 3.2 % (0.0-6.0); HEMATOCRIT 25.3 % (38.2-49.6); HEMOGLOBIN 7.4 g/dL (14.0-18.0); LYMPHOCYTES # (AUTO) 1.3 (1.0-3.2); LYMPHOCYTES % 23.8 % (18.0-39.1); MEAN CORPUSCULAR HEMOGLOBIN 22.1 pg (28-32); MEAN CORPUSCULAR HGB CONC 29.2 g/dL (31-35); MEAN CORPUSCULAR VOLUME 75.5 fL (81-99); MONOCYTES # (AUTO) 0.7 (0.2-0.8); MONOCYTES % 12.8 % (4.4-11.3); NEUTROPHILS # (AUTO) 3.3 (2.1-6.9); NEUTROPHILS % 58.6 % (38.7-80.0); PLATELET COUNT 222 x10e3/uL (140-360); RED BLOOD COUNT 3.35 x10e6/uL (4.3-5.7)
[2019-02-20 06:03] VITALS: BP 135/61
[2019-02-20 06:19] LABS: ANION GAP 12.1 mmol/L (8-16); CALCIUM 9.1 mg/dL (8.4-10.2); CREATININE, SERUM 1.33 mg/dL (0.72-1.25); POTASSIUM 4.1 mmol/L (3.5-5.1)
[2019-02-20 07:43] VITALS: BP 132/62
[2019-02-20] MEDS: FAMOTIDINE 20 MG TAB PO SCH ×2 (07:45→17:20)
[2019-02-20] MEDS: FERROUS SULFATE 325 MG TAB PO SCH ×2 (07:45→17:20)
[2019-02-20 08:10] VITALS: BP 132/62
[2019-02-20] MEDS: ALLOPURINOL 100 MG TAB PO SCH (08:10)
[2019-02-20] MEDS: FUROSEMIDE INJ 10 MG/ML 2 ML VIAL IV SCH (08:10)
[2019-02-20] MEDS: LISINOPRIL 10 MG TAB PO SCH (08:10)
[2019-02-20] MEDS: HYDRALAZINE HCL 25 MG TAB PO SCH ×2 (08:10→15:00)
[2019-02-20] MEDS: ASCORBIC ACID 500 MG TAB PO SCH ×2 (08:10→17:20)
[2019-02-20] MEDS: METOPROLOL SUCCINATE 25 MG TAB XL PO SCH (08:10)
[2019-02-20 11:41] VITALS: BP 132/59
[2019-02-20] MEDS ORDERED: HYOSCYAMINE 0.125 MG TAB PO ONE (14:31)
[2019-02-20] MEDS ORDERED: PROPOFOL IV EMULSION 10 MG/ML 50 ML VIAL ONE (14:57)
[2019-02-20] MEDS ORDERED: MIDAZOLAM HCL 2 MG/2 ML VIAL ONE (15:00)
[2019-02-20] MEDS ORDERED: FENTANYL CITRATE/PF 100MCG/2 ML INJ ONE (15:00)
--- NOTE | 2019-02-20 15:05 | NUR ---
patient alert and oriented, leaving the unit via stretcher to procedure at this time, at bedside.
[2019-02-20] MEDS ORDERED: IRON SUCROSE 100 MG in SODIUM CHLORIDE 0.9% 100 ML 100 ML IV SCH (17:00)
--- NOTE | 2019-02-20 17:07 | NUR ---
patient back to unit, alert and oriented. family at bedside, call webber within reach and bed in lowest position.
[2019-02-20] MEDS ORDERED: PLAVIX75 MG PO (17:14)
[2019-02-20 17:34] VITALS: BP 116/58
--- NOTE | 2019-02-20 18:20 | NUR ---
patient alert and oriented with at bedside. discharge instructions given at this time, both verbalized understanding. IV discontinued, catheter in tact and small bandage applied. Patient to be wheeled out to personal auto for family to drive home.
[2019-02-20] MEDS ORDERED: SIMVASTATIN 40 MG TAB PO SCH (21:00)
--- NOTE | 2019-02-20 23:08 | Operative Report ---
DATE OF PROCEDURE: 02/20/2019 SURGEON: Harish Luu MD PROCEDURE: Colonoscopy with polypectomy note. INDICATIONS FOR COLONOSCOPY: Anemia. EGD findings did not explain the degree of the patient's anemia or blood loss. MEDICATIONS: The patient was done under MAC, please see anesthesiologist's note. PROCEDURE IN DETAIL: With the patient in left lateral decubitus position, a flexible fiberoptic Olympus colonoscope was inserted into the rectum with ease and advanced all the way to the cecum. Prep overall was suboptimal, but visualization was fair. The scope was then withdrawn slowly. A minute polyp was noted in the cecum that was removed per cold snare polypectomy. One polyp was removed also in the ascending colon per cold snare polypectomy. The transverse colon was within normal limits. One polyp was snared in the descending colon. Some diverticular disease was noted in the sigmoid colon. The rectum grossly appeared to be within normal limits. The scope was then retroflexed into the distal rectum and small internal hemorrhoids were noted, none of which was actively bleeding. The scope was then straightened out, it was subsequently withdrawn. The patient tolerated the procedure well. IMPRESSION: 1. Suboptimal prep, visualization was fair. 2. Cecal polyp removed per cold snare polypectomy. 3. Ascending colon polyp removed per cold snare polypectomy. 4. Descending colon polyp removed per snare electrocautery. 5. Diverticulosis. 6. Internal hemorrhoids, none actively bleeding. PLAN: Follow up histology. Findings on the colonoscopy do not necessarily explain the patient's anemia or the degree of his blood loss. We will need electively a small bowel series and if negative then the patient might benefit from a capsule endoscopy. A followup colonoscopy is in order in 3 to 5 years. Harish Luu MD [facility] [place] /[id number] cc: Bennie Lucia MD
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
== END 2019-02-20 18:31 | disposition home or self-care (01) | DRG 291 ==
LOC: ER 11:38 → ERHOLD 13:16 → MED/SURG2 19:56
PROVIDERS: ADMIT Internal Medicine; ATTEND Internal Medicine
PROC: 30233N1 Transfusion of Nonautologous Red Blood Cells into Peripheral Vein, Percutaneous Approach (ICD-10-PCS; principal; 2019-02-17)
PROC: 0DB98ZX Excision of Duodenum, Via Natural or Artificial Opening Endoscopic, Diagnostic (ICD-10-PCS; 2019-02-19)
PROC: 0DB68ZX Excision of Stomach, Via Natural or Artificial Opening Endoscopic, Diagnostic (ICD-10-PCS; 2019-02-19)
PROC: 0DBK8ZX Excision of Ascending Colon, Via Natural or Artificial Opening Endoscopic, Diagnostic (ICD-10-PCS; 2019-02-20)
PROC: 0DBM8ZX Excision of Descending Colon, Via Natural or Artificial Opening Endoscopic, Diagnostic (ICD-10-PCS; 2019-02-20)
PROC: 0DBH8ZX Excision of Cecum, Via Natural or Artificial Opening Endoscopic, Diagnostic (ICD-10-PCS; 2019-02-20)
DX: I13.0 Hypertensive heart and chronic kidney disease with heart failure and stage 1 through stage 4 chronic kidney disease, or unspecified chronic kidney disease (principal); I50.23 Acute on chronic systolic (congestive) heart failure; N17.9 Acute kidney failure, unspecified; K92.2 Gastrointestinal hemorrhage, unspecified; D62 Acute posthemorrhagic anemia; N18.9 Chronic kidney disease, unspecified; E66.9 Obesity, unspecified; Z68.31 Body mass index [BMI] 31.0-31.9, adult; M10.9 Gout, unspecified; E78.5 Hyperlipidemia, unspecified; Z95.1 Presence of aortocoronary bypass graft; Z80.9 Family history of malignant neoplasm, unspecified; Z87.442 Personal history of urinary calculi; Z79.82 Long term (current) use of aspirin; Z87.891 Personal history of nicotine dependence; K20.9 Esophagitis, unspecified; K29.70 Gastritis, unspecified, without bleeding; K63.5 Polyp of colon; K57.30 Diverticulosis of large intestine without perforation or abscess without bleeding; K64.8 Other hemorrhoids
CPT/HCPCS: 36415; 43239; 45385; 71045; 80048; 80053; 81001; 82270; 82550; 82553; 82607; 82728; 82746; 83540; 83880; 84436; 84443; 84466; 84484; 85025; 85045; 85610; 85730; 86850; 86900; 86920; 88305; 88312; 93005; 93306; 93970; 99284; J1756; J1940; J2250; J3010; J7050; P9016

== ENCOUNTER 2019-12-17 14:37 | Observation (INO) | payer OTHER ==
[~2019-12-17] VITALS: Ht 175.3 cm; Wt 95.3 kg
[~2019-12-17 14:37] MED LIST changes: +ASCORBIC ACID500 MG PO; +FERROUS SULFAT325 MG PO
[2019-12-17] MEDS ORDERED: PANTOPRAZOLE 40 MG 10ML VIAL IV ONE (14:54)
[2019-12-17] MEDS ORDERED: SODIUM CHLORIDE 0.9% 1000ML 1,000 ML IV STA (14:54)
[2019-12-17 15:12] LABS: BASOPHILS # (AUTO) 0.1 (0.0-0.1); BASOPHILS % 0.7 % (0.0-1.0); EOSINOPHILS # (AUTO) 0.1 (0.0-0.4); EOSINOPHILS % 1.2 % (0.0-6.0); HEMATOCRIT 23.1 % (38.2-49.6); HEMOGLOBIN 7.3 g/dL (14.0-18.0); LYMPHOCYTES # (AUTO) 1.4 (1.0-3.2); LYMPHOCYTES % 18.8 % (18.0-39.1); MEAN CORPUSCULAR HEMOGLOBIN 28.4 pg (28-32); MEAN CORPUSCULAR HGB CONC 31.6 g/dL (31-35); MEAN CORPUSCULAR VOLUME 89.9 fL (81-99); MONOCYTES # (AUTO) 0.6 (0.2-0.8); MONOCYTES % 8.3 % (4.4-11.3); NEUTROPHILS # (AUTO) 5.4 (2.1-6.9); NEUTROPHILS % 70.3 % (38.7-80.0); PLATELET COUNT 196 x10e3/uL (140-360); RED BLOOD COUNT 2.57 x10e6/uL (4.3-5.7); RED CELL DISTRIBUTION WIDTH 20.4 % (11.7-14.4)
--- NOTE | 2019-12-17 15:38 | Diagnostic Imaging Report ---
EXAM: CHEST SINGLE (PORTABLE) DATE: 12/17/2019 3:15 PM INDICATION: Shortness of breath, anemia COMPARISON: 02/17/2019 FINDINGS: There are postsurgical changes from prior median sternotomy The trachea is midline. The lungs are symmetrically expanded without evidence for large focal consolidation, pneumothorax, or significant pleural effusion. The cardiomediastinal silhouette is stable in appearance. The pulmonary vasculature is not engorged. No acute osseous abnormality is identified. The surrounding soft tissues are unremarkable. IMPRESSION: No acute cardiopulmonary process identified. Signed by: Dr. Isaias Mendoza MD on 12/17/2019 3:34 PM
[2019-12-17 15:42] LABS: INR 0.89; PROTHROMBIN TIME 12.6 seconds (11.9-14.5)
[2019-12-17 15:43] LABS: PARTIAL THROMBOPLASTIN TIME 25.6 seconds (23.8-35.5)
[2019-12-17 15:51] LABS: ALANINE AMINOTRANSFERASE 20 IU/L (0-55); ALBUMIN 3.4 g/dL (3.5-5.0); ALBUMIN/GLOBULIN RATIO 1.1 (0.8-2.0); ALKALINE PHOSPHATASE 53 IU/L (40-150); ANION GAP 10.9 mmol/L (8-16); BLOOD UREA NITROGEN 17 mg/dL (7-26); BUN/CREATININE RATIO 19 (6-25); CALCIUM 8.3 mg/dL (8.4-10.2); CARBON DIOXIDE 24 mmol/L (22-29); CHLORIDE 107 mmol/L (98-107); CREATINE KINASE 89 IU/L (30-200); CREATININE, SERUM 0.89 mg/dL (0.72-1.25); EST GLOMERULAR FILTRATION RATE > 60 ML/MIN (60-); GLUCOSE 117 mg/dL (74-118); POTASSIUM 3.9 mmol/L (3.5-5.1); SODIUM 138 mmol/L (136-145)
[2019-12-17] MEDS ORDERED: SODIUM CHLORIDE 0.9% 250ML 250 ML IV ONE (17:00)
--- NOTE | 2019-12-17 17:46 | Emergency Department Note ---
History of Present Illnes History of Present Illness Chief Complaint: General Medicine Complaints History of Present Illness This is a 64 year old male PATIENT IN FROM HOME; STATES WAS SENT BY DR BLANCA FOR ANEMIA. PATIENT STATES THAT HE HAS BEEN ANEMIC IN THE PAST AND REQUIRED BLOOD TRANSFUSIONS. PATIENT REPORTS SHORTNESS OF BREATH ON EXERTION X 3 WEEKS. PATIENT ALSO REPORTS DARK STOOLS, BUT TAKES AN IRON SUPPLEMENT. PATIENT ALERT AND ORIENTED, RESP EVEN AND NONLABORED, APPEARS IN NO DISTRESS. . Historian: Patient Arrival Mode: Car Onset (how long ago): week(s) (3) Radiation: Reports non-radiation Severity: moderate Timing of current episode: intermittent Chronicity: new Context: Denies recent illness Relieving factors: none Exacerbating factors: none Associated symptoms: Reports denies other symptoms, Reports shortness of breath Past Medical/Family History Physician Review I have reviewed the patient's past medical and family history. Any updates have been documented here. Past Medical History Recent Fever: No Clinical Suspicion of Infectio: No New/Unexplained Change in Ment: No Past Medical History: Hypertension, [place], Hyperlipedemia Past Surgical History: CABG Other Surgery: CARDIAC BYPASS(MAR 2012) Social History Smoking Cessation: Never Smoker Counseling Performed: No Alcohol Use: None Any Illegal Drug Use: No TB Exposure/Symptoms: No Physically hurt or threatened: No Family History Family history of heart diseas: No Other Last Tetanus: UNKNOWN Review of Systems Review of Systems Constitutional: Reports no symptoms EENTM: Reports no symptoms Cardiovascular: Reports no symptoms Respiratory: Reports dyspnea on exertion Gastrointestinal: Reports no symptoms Genitourinary: Reports no symptoms Musculoskeletal: Reports no symptoms Integumentary: Reports no symptoms Neurological: Reports no symptoms Psychological: Reports no symptoms Endocrine: Reports no symptoms Hematological/Lymphatic: Reports no symptoms Physical Exam Related Data Allergies: Coded Allergies: No Known Allergies (Unverified , 02/01/13) Triage Vital Signs Vital Signs Date Time Temp Pulse Resp B/P (MAP) Pulse Ox O2 Delivery O2 Flow Rate FiO2 12/17/19 14:40 98.7 97 20 148/65 98 Vital signs reviewed: Yes Physical Exam CONSTITUTIONAL Constitutional: Present well-developed, Present well-nourished HENT HENT: Present normocephalic, Present atraumatic, Present oropharynx clear/moist, Present nose normal HENT L/R: Present left ext ear normal, Present right ext ear normal EYES Eyes: Reports PERRL, Reports conjunctivae normal NECK Neck: Present ROM normal PULMONARY Pulmonary: Present effort normal, Present breath sounds normal CARDIOVASCULAR Cardiovascular: Present regular rhythm, Present heart sounds normal, Present capillary refill normal, Present normal rate GASTROINTESTINAL Abdominal: Present soft, Present nontender, Present bowel sounds normal GENITOURINARY Genitourinary: Present exam deferred SKIN Skin: Present warm, Present dry MUSCULOSKELETAL Musculoskeletal: Present ROM normal NEUROLOGICAL Neurological: Present alert, Present oriented x 3, Present no gross motor or sensory deficits PSYCHOLOGICAL Psychological: Present mood/affect normal, Present judgement normal Results Laboratory Result Diagram: 12/17/19 1447 12/17/19 1522 Laboratory Laboratory Tests Test 12/17/19 15:22 12/17/19 14:47 Prothrombin Time 12.6 seconds (11.9-14.5) Prothromb Time International Ratio 0.89 Activated Partial Thromboplast Time 25.6 seconds (23.8-35.5) Sodium Level 138 mmol/L (136-145) Potassium Level 3.9 mmol/L (3.5-5.1) Chloride Level 107 mmol/L (98-107) Carbon Dioxide Level 24 mmol/L (22-29) Anion Gap 10.9 mmol/L (8-16) Blood Urea Nitrogen 17 mg/dL (7-26) Creatinine 0.89 mg/dL (0.72-1.25) Estimat Glomerular Filtration Rate > 60 ML/MIN (60-) BUN/Creatinine Ratio 19 (6-25) Glucose Level 117 mg/dL (74-118) Calcium Level 8.3 mg/dL (8.4-10.2) Total Bilirubin 0.2 mg/dL (0.2-1.2) Aspartate Amino Transf (AST/SGOT) 17 IU/L (5-34) Alanine Aminotransferase (ALT/SGPT) 20 IU/L (0-55) Alkaline Phosphatase 53 IU/L (40-150) Creatine Kinase 89 IU/L (30-200) Creatine Kinase MB 1.20 ng/mL (0-5.0) Troponin I < 0.001 ng/mL (0-0.300) Total Protein 6.6 g/dL (6.5-8.1) Albumin 3.4 g/dL (3.5-5.0) Globulin 3.2 g/dL (2.3-3.5) Albumin/Globulin Ratio 1.1 (0.8-2.0) White Blood Count 7.60 x10e3/uL (4.8-10.8) Red Blood Count 2.57 x10e6/uL (4.3-5.7) Hemoglobin 7.3 g/dL (14.0-18.0) Hematocrit 23.1 % (38.2-49.6) Mean Corpuscular Volume 89.9 fL (81-99) Mean Corpuscular Hemoglobin 28.4 pg (28-32) Mean Corpuscular Hemoglobin Concent 31.6 g/dL (31-35) Red Cell Distribution Width 20.4 % (11.7-14.4) Platelet Count 196 x10e3/uL (140-360) Neutrophils (%) (Auto) 70.3 % (38.7-80.0) Lymphocytes (%) (Auto) 18.8 % (18.0-39.1) Monocytes (%) (Auto) 8.3 % (4.4-11.3) Eosinophils (%) (Auto) 1.2 % (0.0-6.0) Basophils (%) (Auto) 0.7 % (0.0-1.0) Neutrophils # (Auto) 5.4 (2.1-6.9) Lymphocytes # (Auto) 1.4 (1.0-3.2) Monocytes # (Auto) 0.6 (0.2-0.8) Eosinophils # (Auto) 0.1 (0.0-0.4) Basophils # (Auto) 0.1 (0.0-0.1) Absolute Immature Granulocyte (auto 0.05 x10e3/uL (0-0.1) B-Type Natriuretic Peptide 90.5 pg/mL (0-100) Lab results reviewed: Yes Imaging Imaging results reviewed: Yes Impressions EXAM: CHEST SINGLE (PORTABLE) DATE: 12/17/2019 3:15 PM INDICATION: Shortness of breath, anemia COMPARISON: 02/17/2019 FINDINGS: There are postsurgical changes from prior median sternotomy The trachea is midline. The lungs are symmetrically expanded without evidence for large focal consolidation, pneumothorax, or significant pleural effusion. The cardiomediastinal silhouette is stable in appearance. The pulmonary vasculature is not engorged. No acute osseous abnormality is identified. The surrounding soft tissues are unremarkable. IMPRESSION: No acute cardiopulmonary process identified. Signed by: Dr. Isaias Mendoza MD on 12/17/2019 3:34 PM Procedures 12 Lead ECG Interpretation ECG Interpretation : ECG: ECG 1 Civil Rights Attorney: Interpreted by ED physician Date: Dec 17, 2019 Time: 14:57 Prior ECG tracings: reviewed Rhythm: sinus rhythm Rate: normal (95) QRS axis: normal ST segments normal: Yes T waves normal: Yes Clinical Impression: normal ECG Assessment & Plan Medical Decision Making MDM CBC, CHEM'S, CARDIAC MARKERS, PT/PTT, T&S - R/O ANEMIA, ELECTROLYTE ABNL, RENAL INSUFF, STEMI/NSTEMI, COAGULOPATHY Reassessment Reassessment ADMIT TO DR VIDALES FOR SYMPTOMATIC ANEMIA - HE WANTS TO GIVE 2 U PRBC'S, CONSULT DR Shakir DIAZ (SPOKE WITH HIM ALSO) Assessment & Plan Final Impression: (1) GI bleed (2) Anemia Depart Disposition: ADMITTED Last Vital Signs Date Time Temp Pulse Resp B/P (MAP) Pulse Ox O2 Delivery O2 Flow Rate FiO2 12/17/19 14:40 98.7 97 20 148/65 98 Home Meds Active Scripts Clopidogrel Bisulfate* (PLAVIX) 75 Mg Tablet, 75 MG PO DAILY, #30 TAB 2 Refills hold for 5 days. resume on 02/24/19 Prov:YESSICA MENDEZ NP 02/20/19 Ascorbic Acid (ASCORBIC ACID) 500 Mg Tablet, 500 MG PO BID for 30 Days Prov:YESSICA MENDEZ NP 02/20/19 Ferrous Sulfate (FERROUS SULFATE) 325 Mg Tablet, 325 MG PO BIDWM for 30 Days Prov:YESSICA MENDEZ NP 02/20/19 Simvastatin (ZOCOR) 20 Mg Tablet, 40 MG PO HS for 30 Days, TAB 2 Refills Prov:ALTON VOSS MD 11/29/15 [Hydralazine Hcl] 25 MG TAB No Conflict Check, 50 MG PO TID for 30 Days, 2 Refills Prov:ALTON VOSS MD 11/29/15 Reported Medications Allopurinol (ALLOPURINOL) 100 Mg Tablet, 100 MG PO DAILY, #30 TAB 12/23/14 Metoprolol Succinate (METOPROLOL SUCCINATE) 25 Mg Tab.er.24h, 25 MG PO BID 02/01/13 Aspirin (ASPIR-LOW) 81 Mg Tablet.dr, 81 MG PO DAILY 02/01/13 Lisinopril (LISINOPRIL) 10 Mg Tablet, 10 MG PO DAILY 02/01/13 Medications in the ED Pantoprazole Sodium 80 mg ONCE ONCE IV Last administered on 12/17/19at 17:36; Admin Dose 80 MG; Start 12/17/19 at 14:54; Stop 12/17/19 at 14:57; Status DC Sodium Chloride 1,000 ml @ 0 mls/hr Q0M STAT IV Last administered on 12/17/19at 17:36; Admin Dose 1,000 MLS/HR; Start 12/17/19 at 14:54; Stop 12/17/19 at 14:57; Status DC LORENA BAILEY MD Dec 17, 2019 17:46
--- NOTE | 2019-12-17 20:20 | NUR ---
Pt admitted to room 298 via stretcher from home. Pt alert and orient to name, hospital, and diagnosis: GIB. Pt was informed by primary physician to come to hospital after low hgb. Pt skin warm and intact. Steady gait. Last BM 12/16 with blood. Denies dysuria, urine clear. Pt blood transfusion completed x1, Pt tolerated well. Pt oriented to room, call light within reach. Will continue to monitor.
[2019-12-17 20:37] VITALS: BP 132/68
[2019-12-17] MEDS: FUROSEMIDE INJ 10 MG/ML 2 ML VIAL IV PRN (20:45)
[2019-12-17] MEDS: PANTOPRAZOLE 40 MG 10ML VIAL IV SCH (21:00)
[2019-12-17 21:32] VITALS: BP 138/65
[2019-12-17 22:07] VITALS: BP 138/65
[2019-12-17 22:25] VITALS: BP 138/65
[2019-12-17] MEDS ORDERED: SODIUM CHLORIDE 0.9% 250ML 250 ML ONE (22:48)
[2019-12-17] MEDS ORDERED: VITAMIN D250 MCG PO (23:06)
[2019-12-17 23:31] LABS: BASOPHILS # (AUTO) 0.1 (0.0-0.1); BASOPHILS % 0.8 % (0.0-1.0); EOSINOPHILS # (AUTO) 0.1 (0.0-0.4); HEMOGLOBIN 8.6 g/dL (14.0-18.0); LYMPHOCYTES # (AUTO) 1.6 (1.0-3.2); LYMPHOCYTES % 20.2 % (18.0-39.1); MEAN CORPUSCULAR HEMOGLOBIN 27.9 pg (28-32); MEAN CORPUSCULAR HGB CONC 31.9 g/dL (31-35); MEAN CORPUSCULAR VOLUME 87.7 fL (81-99); MONOCYTES # (AUTO) 0.6 (0.2-0.8); MONOCYTES % 7.8 % (4.4-11.3); NEUTROPHILS # (AUTO) 5.4 (2.1-6.9); NEUTROPHILS % 69.6 % (38.7-80.0); PLATELET COUNT 194 x10e3/uL (140-360); RED BLOOD COUNT 3.08 x10e6/uL (4.3-5.7); RED CELL DISTRIBUTION WIDTH 19.5 % (11.7-14.4)
[2019-12-18] VITALS (8 sets, daily range): BP systolic 110–150; BP diastolic 58–88
[2019-12-18] MEDS: FUROSEMIDE INJ 10 MG/ML 2 ML VIAL IV PRN (02:20)
[2019-12-18 06:51] LABS: BASOPHILS # (AUTO) 0.1 (0.0-0.1); BASOPHILS % 0.9 % (0.0-1.0); EOSINOPHILS # (AUTO) 0.1 (0.0-0.4); EOSINOPHILS % 1.8 % (0.0-6.0); HEMATOCRIT 31.2 % (38.2-49.6); HEMOGLOBIN 10.1 g/dL (14.0-18.0); LYMPHOCYTES # (AUTO) 1.2 (1.0-3.2); LYMPHOCYTES % 17.9 % (18.0-39.1); MEAN CORPUSCULAR HEMOGLOBIN 28.1 pg (28-32); MEAN CORPUSCULAR HGB CONC 32.4 g/dL (31-35); MEAN CORPUSCULAR VOLUME 86.9 fL (81-99); MONOCYTES # (AUTO) 0.6 (0.2-0.8); MONOCYTES % 8.9 % (4.4-11.3); NEUTROPHILS # (AUTO) 4.7 (2.1-6.9); NEUTROPHILS % 69.8 % (38.7-80.0); PLATELET COUNT 181 x10e3/uL (140-360); RED BLOOD COUNT 3.59 x10e6/uL (4.3-5.7); RED CELL DISTRIBUTION WIDTH 19.1 % (11.7-14.4)
--- NOTE | 2019-12-18 07:00 | NUR ---
BEDSIDE SHIFT REPORT RECEIVED FROM THE STREET AND BUILDING DECORATOR RN. EDUCATED PT ABOUT FALL PRECAUTIONS. PT VERBALIZED UNDERSTANDING. CALL LIGHT WITH IN EASY REACH. INSTRUCTED PT TO USE CALL LIGHT FOR ALL THE NEEDS. BED IS LOW AND LOCKED. SIDE RAILS X2. PT DENIES NEEDS AT THIS TIME.
[2019-12-18 07:12] LABS: % IRON SATURATION 6 % (15-50); ALANINE AMINOTRANSFERASE 19 IU/L (0-55); ALBUMIN 3.3 g/dL (3.5-5.0); ALKALINE PHOSPHATASE 48 IU/L (40-150); ANION GAP 10.9 mmol/L (8-16); BLOOD UREA NITROGEN 14 mg/dL (7-26); BUN/CREATININE RATIO 15 (6-25); CALCIUM 8.7 mg/dL (8.4-10.2); CARBON DIOXIDE 29 mmol/L (22-29); CHLORIDE 102 mmol/L (98-107); CREATININE, SERUM 0.94 mg/dL (0.72-1.25); EST GLOMERULAR FILTRATION RATE > 60 ML/MIN (60-); GLUCOSE 99 mg/dL (74-118); IRON 21 ug/dL (65-175); POTASSIUM 3.9 mmol/L (3.5-5.1); SODIUM 138 mmol/L (136-145); TOTAL IRON BINDING CAPACITY 365 ug/dL (261-478); TRANSFERRIN 261 mg/dL (174-364)
[2019-12-18] MEDS ORDERED: HEPARIN SOD (PORCINE) 1000 UNIT/ML SDV ONE (08:07)
[2019-12-18] MEDS: PANTOPRAZOLE 40 MG 10ML VIAL IV SCH ×2 (08:30→21:00)
[2019-12-18] MEDS ORDERED: HYDRALAZINE HCL 20 MG/ML VIAL IV PRN (11:00)
[2019-12-18] MEDS ORDERED: ACETAMINOPHEN 325 MG TAB PO PRN (11:00)
[2019-12-18] MEDS ORDERED: ONDANSETRON HCL INJ 2MG/ML 2ML 2 MG/ML VIAL IV PRN (11:00)
--- NOTE | 2019-12-18 11:53 | Diagnostic Imaging Report ---
Tagged-RBC GI Bleed Study Clinical information: 64-year-old male with anemia. Discussion: The patient's own red blood cells were labeled with 26.6 mCi of technetium-99m pertechnetate using the in vitro method (UltraTag). Dynamic images of the abdomen were obtained through 60 minutes. Distribution of tracer activity appears physiologic throughout the abdomen. No abnormal accumulation of tracer is seen within the gastrointestinal lumen. Impression: No scan evidence of active gastrointestinal bleeding at this time. Signed by: Dr. Candy Roach M.D. on 12/18/2019 11:50 AM
--- NOTE | 2019-12-18 14:00 | NUR ---
COVID TEST NOT SHOWING IN THE SYSTEM FOR THE PT. INFORMED THE SAME TO COBOL DEVELOPER.
[2019-12-18] MEDS: HYDRALAZINE HCL 25 MG TAB PO SCH ×2 (16:00→21:00)
[2019-12-18] MEDS: METOPROLOL SUCCINATE 25 MG TAB XL PO SCH (16:08)
--- NOTE | 2019-12-18 19:15 | NUR ---
BEDSIDE SHIFT REPORT GIVEN TO THE STERILE PROCESS COORDINATOR RN. PT DENIED FURTHER NEEDS.
[2019-12-18 19:56] LABS: BASOPHILS # (AUTO) 0.1 (0.0-0.1); BASOPHILS % 0.6 % (0.0-1.0); EOSINOPHILS # (AUTO) 0.1 (0.0-0.4); EOSINOPHILS % 0.8 % (0.0-6.0); HEMOGLOBIN 10.2 g/dL (14.0-18.0); LYMPHOCYTES # (AUTO) 1.3 (1.0-3.2); LYMPHOCYTES % 16.3 % (18.0-39.1); MEAN CORPUSCULAR HEMOGLOBIN 27.9 pg (28-32); MEAN CORPUSCULAR HGB CONC 31.9 g/dL (31-35); MEAN CORPUSCULAR VOLUME 87.7 fL (81-99); MONOCYTES # (AUTO) 0.7 (0.2-0.8); MONOCYTES % 8.4 % (4.4-11.3); NEUTROPHILS # (AUTO) 5.7 (2.1-6.9); NEUTROPHILS % 73.6 % (38.7-80.0); PLATELET COUNT 198 x10e3/uL (140-360); RED BLOOD COUNT 3.65 x10e6/uL (4.3-5.7); RED CELL DISTRIBUTION WIDTH 18.6 % (11.7-14.4)
[2019-12-18] MEDS: SIMVASTATIN 40 MG TAB PO SCH (21:00)
[2019-12-19] VITALS (8 sets, daily range): BP systolic 116–146; BP diastolic 60–79
[2019-12-19 05:50] LABS: BASOPHILS % 0.6 % (0.0-1.0); EOSINOPHILS # (AUTO) 0.1 (0.0-0.4); EOSINOPHILS % 1.2 % (0.0-6.0); HEMATOCRIT 32.8 % (38.2-49.6); HEMOGLOBIN 10.5 g/dL (14.0-18.0); LYMPHOCYTES # (AUTO) 1.3 (1.0-3.2); MEAN CORPUSCULAR HEMOGLOBIN 27.6 pg (28-32); MEAN CORPUSCULAR VOLUME 86.1 fL (81-99); MONOCYTES # (AUTO) 0.6 (0.2-0.8); MONOCYTES % 8.9 % (4.4-11.3); NEUTROPHILS # (AUTO) 4.6 (2.1-6.9); PLATELET COUNT 203 x10e3/uL (140-360); RED BLOOD COUNT 3.81 x10e6/uL (4.3-5.7); RED CELL DISTRIBUTION WIDTH 18.5 % (11.7-14.4)
[2019-12-19 06:16] LABS: ALANINE AMINOTRANSFERASE 21 IU/L (0-55); ALBUMIN 3.7 g/dL (3.5-5.0); ALKALINE PHOSPHATASE 52 IU/L (40-150); BLOOD UREA NITROGEN 15 mg/dL (7-26); BUN/CREATININE RATIO 14 (6-25); CALCIUM 8.8 mg/dL (8.4-10.2); CARBON DIOXIDE 27 mmol/L (22-29); CHLORIDE 102 mmol/L (98-107); CREATININE, SERUM 1.07 mg/dL (0.72-1.25); EST GLOMERULAR FILTRATION RATE > 60 ML/MIN (60-); GLUCOSE 109 mg/dL (74-118); SODIUM 136 mmol/L (136-145)
--- NOTE | 2019-12-19 07:13 | NUR ---
Pt lying in bed, no acute distress noted. Report given to morning nurse.
--- NOTE | 2019-12-19 07:30 | NUR ---
PAGED OR REGARDING THE TIMING FOR EGD. LATE AFTER NOON PER OR AND OKAY TO ADMINISTER MORNING MEDS WITH SIP OF WATER PER OR.
[2019-12-19] MEDS: HYDRALAZINE HCL 25 MG TAB PO SCH ×3 (08:00→21:44)
[2019-12-19] MEDS: METOPROLOL SUCCINATE 25 MG TAB XL PO SCH ×2 (08:00→21:44)
[2019-12-19] MEDS: PANTOPRAZOLE 40 MG 10ML VIAL IV SCH ×2 (08:01→21:44)
[2019-12-19] MEDS ORDERED: ALLOPURINOL 100 MG TAB PO SCH (09:00)
[2019-12-19] MEDS ORDERED: IRON SUCROSE 100 MG in SODIUM CHLORIDE 0.9% 100 ML 100 ML IV SCH (09:00)
[2019-12-19] MEDS ORDERED: SODIUM CHLORIDE 0.9% 250ML 250 ML ONE (09:36)
[2019-12-19] MEDS ORDERED: PANTOPRAZOLE SO40 MG PO (09:57)
--- NOTE | 2019-12-19 14:47 | NUR ---
OR CALLED REGARDING COVID TEST NOT IN [facility]. INFORMED THE SAME TO CORPORATE INVESTIGATOR AND GERIATRIC PHYSICAL THERAPIST. CORPORATE INVESTIGATOR DONE THE NASAL SWAB ON 12/17 AND SENT THE SPECIMEN TO THE LAB ON THE SAME DAY. INFORMED THE SAME TO OR.
[2019-12-19] MEDS ORDERED: FENTANYL CITRATE/PF 100MCG/2 ML INJ ONE (15:18)
[2019-12-19] MEDS ORDERED: MIDAZOLAM HCL 2 MG/2 ML VIAL ONE (15:18)
--- NOTE | 2019-12-19 16:56 | NUR ---
PAGED OR REGARDING TIMING FOR EGD. 2 MORE CASES BEFORE THE PT AND STILL ON SCHEDULE PER OR.
[2019-12-19 18:23] LABS: BASOPHILS % 0.5 % (0.0-1.0); EOSINOPHILS % 0.5 % (0.0-6.0); HEMATOCRIT 33.3 % (38.2-49.6); HEMOGLOBIN 10.6 g/dL (14.0-18.0); LYMPHOCYTES # (AUTO) 0.9 (1.0-3.2); LYMPHOCYTES % 10.8 % (18.0-39.1); MEAN CORPUSCULAR HEMOGLOBIN 27.5 pg (28-32); MEAN CORPUSCULAR HGB CONC 31.8 g/dL (31-35); MEAN CORPUSCULAR VOLUME 86.5 fL (81-99); MONOCYTES # (AUTO) 0.7 (0.2-0.8); MONOCYTES % 8.2 % (4.4-11.3); NEUTROPHILS # (AUTO) 6.6 (2.1-6.9); NEUTROPHILS % 79.8 % (38.7-80.0); PLATELET COUNT 217 x10e3/uL (140-360); RED BLOOD COUNT 3.85 x10e6/uL (4.3-5.7)
--- NOTE | 2019-12-19 18:30 | NUR ---
PT OFF UNIT FOR EGD IN SAFE CONDITION.
--- NOTE | 2019-12-19 19:10 | NUR ---
SHIFT REPORT GIVEN TO THE INSURANCE AGENCY OWNER RN. PT IS AT OR.
--- NOTE | 2019-12-19 20:25 | NUR ---
patient arrived from egd, alert and oriented 4. bp 123/71, hr 84, temp. 97.9 sat. 985 Addendum: 12/19/19 at 2025 by Alexi Johnson RN sat.98%
--- NOTE | 2019-12-19 20:26 | Operative Report ---
DATE OF PROCEDURE: 12/19/2019 SURGEON: Harish Luu MD PROCEDURE: EGD with fulguration of duodenal AVMs. INDICATIONS FOR EGD: Anemia, iron deficiency anemia, melena, guaiac-positive stools. MEDICATIONS: The patient was done under MAC, please see anesthesiologist's note. PROCEDURE IN DETAIL: With the patient in left lateral decubitus position, the flexible fiberoptic therapeutic Olympus scope was introduced into the esophagus under direct visualization without any difficulty. There was some patchy erythema noted in distal esophagus. The mucosa overlying the antrum and the body revealed some patchy erythema. Pylorus was of normal contour and shape, it was intubated with ease. The scope was advanced all the way to the second portion of the duodenum. An actively bleeding AVM was noted in the proximal second portion of the duodenum, that was fulgurated with size 10-Mosotho Gold Probe with good hemostasis. Two additional minute AVMs also fulgurated with the 10-Mosotho Gold probe. The scope was then withdrawn back into the stomach and retroflexed, mucosa overlying the fundus and cardia appeared to be within normal limits. The scope was then straightened out, it was subsequently withdrawn. The patient tolerated the procedure well. IMPRESSION: 1. Distal esophagitis, mild. 2. Gastritis, mild. 3. Duodenal AVMs x3, one actively bleeding, all fulgurated with size 10-Mosotho Gold Probe. With good hemostasis. PLAN: 1. Follow H and H. 2. Continue PPI therapy. Harish Luu MD [facility] [place]/MODL /[id number] cc: Bennie Lucia MD
--- NOTE | 2019-12-19 20:55 | NUR ---
patient has an order for discharge, patient returend from EGD, patient not sent home because in report, patient will be seen by Md Luu in the morning for post procedure evaluation.Dr. Kearney team made aware,spoke to Alaina Cifuentes
--- NOTE | 2019-12-19 21:29 | NUR ---
Patient called wants pain medication, made aware aware that he got pain medication already and next due meds is not ready, he yelled and states I dont give a damn just give me the shot, Dr. Perez office called, patient made aware of resp. depression with the closeness of his medication, patient is currently on 4l nc, waiting for md called back Addendum: 12/19/19 at 2132 by Alexi Johnson RN wrong entry
[2019-12-19] MEDS: SIMVASTATIN 40 MG TAB PO SCH (21:44)
[2019-12-20 01:00] VITALS: BP 126/74
[2019-12-20 05:12] VITALS: BP 137/74
--- NOTE | 2019-12-20 06:55 | NUR ---
patient endorsed to next shift for continuity of care.
--- NOTE | 2019-12-20 07:28 | NUR ---
PATIENT OUT OF BED TO RECLINING CHAIR WATCHING TV, NO DISTRESS NOTED. AYDIN HOSE IN PLACE. CALL LIGHT AT REACH.
--- NOTE | 2019-12-20 07:39 | NUR ---
Spoke with Emerson GÓMEZ and she stated she is preparing pt to dc home today.
--- NOTE | 2019-12-20 08:25 | NUR ---
PATIENT DISCHARGED HOME. DISCHARGE INSTRUCTIONS, PRESCRIPTION, AND FOLLOW GIVEN TO PATIENT, HE VERBALIZED UNDERSTANDING. ALL PERSONAL ITEMS TAKEN WITH PATIENT. LEFT UNIT PER WHEEL CHAIR TO FRONT LOBBY IN STABLE CONDITION.
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
== END 2019-12-20 08:17 | disposition home or self-care (01) ==
LOC: ER 14:37 → ERHOLD 16:53 → MED/SURG3 20:28
PROVIDERS: ADMIT Internal Medicine; ATTEND Internal Medicine
DX: K55.21 Angiodysplasia of colon with hemorrhage (principal); D62 Acute posthemorrhagic anemia; I11.0 Hypertensive heart disease with heart failure; I50.22 Chronic systolic (congestive) heart failure; M10.9 Gout, unspecified; I25.10 Atherosclerotic heart disease of native coronary artery without angina pectoris; Z95.1 Presence of aortocoronary bypass graft; Z11.59 Encounter for screening for other viral diseases; K29.70 Gastritis, unspecified, without bleeding; K20.9 Esophagitis, unspecified
CPT/HCPCS: 36415 ×3; 43255; 71045; 78278; 80053 ×3; 82270; 82550; 82553; 82607; 82746; 83540; 83880; 84466; 84484; 85025 ×3; 85045; 85610; 85730; 86850; 86900; 86920; 87635; 93005; 99284; A9512 ×2; C9113 ×3; G0378 ×4; J1644; J1756 ×2; J1940 ×2; J2250; J3010; J7030; J7050 ×2; P9016